=== PATIENT | female | born 1950 | race Caucasian/White ===

== ENCOUNTER 2017-10-05 15:11 | Inpatient (IN) | payer MEDICARE, MEDICAID ==
--- NOTE | 2017-10-05 15:33 | ED Physician Chart ---
ED Chief Complaint/HPI - Patient Information Date Seen:: 10/05/17 Time Seen:: 15:20 Chief Complaint:: Agitation History of Present Illness:: onset x 3 days of agitation and hostile behavior; no report of SIs, trauma, H/as , neck pain, C/P, SOB, cough, Abd. Pain, A/N/V/D/C, fever, chills, or urinary s/ s Allergies:: Allergies Allergy/AdvReac Type Severity Reaction Status Date / Time No Known Allergies Allergy Verified 10/05/17 15:20 Vitals:: Vital Signs - 8 hr 10/05/17 15:20 Temp 98.0 F HR 107 RR 19 BP 139/74 O2 Sat % 97 Historian:: Patient, EMS Review:: Nurse's Note Reviewed, Old Chart Reviewed, EMS run form Reviewed ED Review of Systems - Review of Systems General/Constitutional: No fever, No chills, No weight loss, No weakness, No diaphoresis, No edema, No loss of appetite Skin: No skin lesions, No rash, No bruising Head: No headache, No light-headedness Eyes: No loss of vision, No pain, No diplopia ENT: No earache, No nasal drainage, No sore throat, No tinnitus Neck: No neck pain, No swelling, No thyromegaly, No stiffness, No mass noted Cardio Vascular: No chest pain, No palpitations, No PND, No orthopnea, No edema Pulmonary: No SOB, No cough, No sputum, No wheezing GI: No nausea, No vomiting, No diarrhea, No pain, No melena, No hematochezia, No constipation, No hematemesis G/U: No dysuria, No frequency, No hematuria, No nacturia Boiler Attendant: No vaginal discharge, No abnormal vaginal bleed, No contraction Musculoskeletal: No bone or joint pain, No back pain, No muscle pain Endocrine: No polyuria, No polydipsia Psychiatric: Prior psych history, Depression, Anxiety, No suicidal ideation, No homicidal ideation, No auditory hallucination, No visual hallucination Hematopoietic: No bruising, No lymphadenopathy Allergic/Immuno: No urticaria, No angioedema Neurological: No syncope, No focal symptoms, No weakness, No paresthesia, No headache, No seizure, No dizziness, No confusion, No vertigo ED Past Medical History - Past Medical History Obtainable: Yes Past Medical History: HTN Family History: HTN Social History: Non Smoker, No Alcohol, No Drug Use, Single, Care Facility Surgical History: None Psychiatricy History: Depression, Bipolar Medication: Reviewed Family Medical History - Family Member Mother History Unknown: Yes ED Physical Exam - Physical Examination General/Constitutional: Awake, Well-developed, well-nourished, Alert, No distress, GCS 15, Non-toxic appearing, Ambulatory Head: Atraumatic Eyes: Lids, conjuctiva normal, PERRL, EOMI Skin: Nl inspection, No rash, No skin lesions, No ecchymosis, Well hydrated, No lymphadenopathy ENMT: External ears, nose nl, TM canals nl, Nasal exam nl, Lips, teeth, gums nl , Oropharynx nl, Tonsils nl Neck: Nontender, Full ROM w/o pain, No JVD, No nuchal rigidity, No bruit, No mass, No stridor Respiratory: Nl effort/Exclusion, Clear to Auscultation, No Wheeze/Rhonchi/Rales Cardio Vascular: RRR, No murmur, gallop, rubs, NL S1 S2, Carotid/Femoral/Distal pulses equal bilaterally GI: No tenderness/rebounding/guarding, No organomegaly, No hernia, Normal BS's, Nondistended, No mass/bruits, No McBurney tenderness : No CVA tenderness Extremities: No tenderness or effusion, Full ROM, normal strength in all extremities, No edema, Normal digits & nails Neuro/Psych: Alert/oriented, DTR's symmetric, Normal sensory exam, Normal motor strength, Judgement/insight normal, Mood normal, Normal gait, No focal deficits Other Neuro/Psych comments:: + Psychomotor Agitation; no SIs; Mood/Affect: Labile Misc: Normal back, No paraspinal tenderness ED Labs/Radiology/EKG Results - Lab Results Comments:: unremarkable - EKG Interpretations EKG Time:: 15:17 Rate & Rhythm: 99; NSR Comments:: non-specific st-t changes ED Septic Shock - . Is Septic Shock (SBP<90, OR Lactate>4 mmol\L) present?: No - <6hrs of presentation: Vital Signs: Vital Signs - 8 hr 10/05/17 15:20 Temp 98.0 F HR 107 RR 19 BP 139/74 O2 Sat % 97 ED Reassessment (Disposition) - Reassessment Reassessment Condition:: Improved - Diagnosis Diagnosis:: Dx; Agitation; Bipolar Disorder; Psychosis; Medical Clearance - Aftercare/Follow up Instructions Aftercare/Follow-Up Instructions:: Counseled pt regarding lab results/diagnosis & need follow up, Counseled pt & family regarding lab results/diagnosis & need follow up - Patient Disposition Discharge/Transfer:: Acute Care w/in this hosp Admitted to:: [facility] Condition at Disposition:: Stable, Improved
[2017-10-05 15:50] LABS: % BASOPHILS 0.5 % (0.0-2.0); % EOSINOPHILS 2.7 % (0.0-5.0); % MONOCYTES 6.2 % (2.0-10.0); % NEUTROPHILS 65.6 % (40.0-80.0); EOSINOPHILE ABSOLUTE 0.1 Th/cmm (0.1-0.4); HEMATOCRIT 30.7 % (41.0-60); HEMOGLOBIN 10.2 gm/dL (12-16); LYMPHOCYTE ABSOLUTE 1.4 Th/cmm (1.5-3.0); MEAN CELL VOLUME 88.7 fl (81-100); MEAN CORPUSCULAR HEMOGLOBIN 29.5 pg (27.0-31.0); MEAN CORPUSCULAR HGB CONC 33.2 pg (28.0-36.0); MEAN PLATELET VOLUME 9.2 fl; MONOCYTE ABSOLUTE 0.3 Th/cmm (0.3-1.0); NEUTROPHILE ABSOLUTE 3.7 Th/cmm (1.8-8.0); PLATELET COUNT 225 Th/cmm (150-400); RED BLOOD COUNT 3.46 Mil/cmm (3.80-5.10); RED CELL DISTRIBUTION WIDTH 13.8 % (11.5-20.0); WHITE BLOOD COUNT 5.5 Th/cmm (4.8-10.8)
[2017-10-05 16:13] LABS: ACETAMINOPHEN < 10.0 ug/mL (10.0-30.0); ALB/GLOB RATIO 1.2 (1.0-1.8); ALBUMIN 3.6 gm/dL (3.7-5.3); ALKALINE PHOSPHATASE 103 U/L (34-104); BILIRUBIN,TOTAL 0.2 mg/dL (0.3-1.0); BUN - UREA NITROGEN 27 mg/dL (7-25); CALCIUM SERUM 8.9 mg/dL (8.6-10.3); CARBON DIOXIDE 26.1 mEq/L (21.0-31.0); CHLORIDE 102 mEq/L (98-107); CHOLESTEROL 160 mg/dL (<200); CREATININE - SERUM 1.1 mg/dL (0.6-1.2); GFR AFRICAN-AMERICAN > 60.0 ml/min (>90); GFR NON AFRICAN-AMERICAN 53.1 ml/min; GLUCOSE 122 mg/dL (70-105); HDL -HIGH DENSITY LIPOPROTEIN 36 mg/dL (23-92); POTASSIUM SERUM 4.1 mEq/L (3.5-5.1); SALICYLATES (ASPIRIN) < 25.0 mg/L (30.0-100.0); SGOT 20 U/L (13-39); SGPT/ALT 21 U/L (7-52); SODIUM SERUM 135 mEq/L (136-145); TOTAL PROTEIN,SERUM 6.6 gm/dL (6.0-8.3); TRIGLYCERIDES 337 mg/dL (<150)
[2017-10-05 17:47] VITALS: BP 134/66
[2017-10-06] MEDS ORDERED: Haloperidol Lactate 5 mg/mL 1mL Vial IM ONE (05:50)
[2017-10-06] MEDS: Levothyroxine 0.1 Mg Tab PO SCH (06:30)
[2017-10-06] MEDS ORDERED: Levothyroxine 0.088 Mg Tab PO SCH (07:30)
[2017-10-06] MEDS: Ferrous Sulfate 325 MG TAB PO SCH ×2 (08:48→16:26)
[2017-10-06] MEDS: Calcium Carb/Vit D 500 mg/200 U Tab PO SCH ×2 (08:49→16:25)
[2017-10-06] MEDS ORDERED: Non-Formulary Item 1 EA (Cranberry Fruit Extract [Cranberry] 425 MG) PO SCH (09:00)
[2017-10-06] MEDS ORDERED: CHLORPROMAZINE HCL 50 MG PO SCH (09:00)
--- NOTE | 2017-10-06 18:39 | History & Physical ---
ADMIT DATE: 10/05/2017 IDENTIFYING INFORMATION: The patient is a 66-year-old female. CHIEF COMPLAINT: No answer. HISTORY OF PRESENT ILLNESS: She was admitted because of increased agitation and aggressive behavior. She was striking out. She has been psychotic. She was a poor historian because of her psychosis, unable to participate in a meaningful conversation or tell me the reason why she was here, her age, where she is, why she is here. She has been on Depakote and Seroquel 300 mg twice a day that was initiated by Dr. Bhatt. PAST PSYCHIATRIC HISTORY: Psychosis. The patient is unable to give me more information. MEDICAL HISTORY: Deferred to Dr. Saab. FAMILY AND SOCIAL HISTORY: Unobtainable. The patient has been living in [place]. She cannot give me any info regarding her family history of psychosis. MENTAL STATUS EXAMINATION: The patient is unpredictable and impulsive. No information regarding drug use, level of education ___. The patient is appropriately dressed, not well groomed. She was internally preoccupied, unable to participate in a meaningful conversation ____ would not answer my question regarding date, where she is, why she is here, unable to answer any questions suicide, homicide, unable to test her memory or language and intelligence because of her being internally preoccupied. Her insight and judgment is impaired. IMPRESSION: AXIS I: Psychosis, not otherwise specified, rule out schizophrenia or bipolar disorder. MEDICAL DIAGNOSES: Defer to Dr. Saab. Her assets, she is accepting. Negative for coping skills. INITIAL TREATMENT PLAN: The patient will be continued on medication, will adjust medications. We will continue to work with the patient in the group therapy, milieu therapy, individual therapy. ESTIMATED LENGTH OF STAY: 3-7 days. DISCHARGE CRITERIA: Decrease psychosis, agitation. After discharge, outpatient treatment. JOB# [id number]
[2017-10-06 20:13] LABS: A1C % 7.3 % (4.0-6.0)
[2017-10-07] MEDS: Levothyroxine 0.1 Mg Tab PO SCH (06:39)
[2017-10-07] MEDS: Ferrous Sulfate 325 MG TAB PO SCH ×2 (09:29→17:53)
[2017-10-07] MEDS: Calcium Carb/Vit D 500 mg/200 U Tab PO SCH ×2 (09:30→17:53)
--- NOTE | 2017-10-07 14:33 | Internal Medicine Prog Note ---
Internal Medicine Subjective - Subjective Service Date: 10/07/17 ([facility] DICTATED [id number]) Internal Medicine Objective - Results Result Diagrams: 10/05/17 15:44 10/05/17 15:44 Recent Labs: Laboratory Last Values WBC 5.5 Th/cmm (4.8-10.8) 10/05/17 15:44 RBC 3.46 Mil/cmm (3.80-5.10) L 10/05/17 15:44 Hgb 10.2 gm/dL (12-16) L 10/05/17 15:44 Hct 30.7 % (41.0-60) L 10/05/17 15:44 MCV 88.7 fl (81-100) 10/05/17 15:44 MCH 29.5 pg (27.0-31.0) 10/05/17 15:44 MCHC Differential 33.2 pg (28.0-36.0) 10/05/17 15:44 RDW 13.8 % (11.5-20.0) 10/05/17 15:44 Plt Count 225 Th/cmm (150-400) 10/05/17 15:44 MPV 9.2 fl 10/05/17 15:44 Neutrophils % 65.6 % (40.0-80.0) 10/05/17 15:44 Lymphocytes % 25.0 % (20.0-50.0) 10/05/17 15:44 Monocytes % 6.2 % (2.0-10.0) 10/05/17 15:44 Eosinophils % 2.7 % (0.0-5.0) 10/05/17 15:44 Basophils % 0.5 % (0.0-2.0) 10/05/17 15:44 Sodium 135 mEq/L (136-145) L 10/05/17 15:44 Potassium 4.1 mEq/L (3.5-5.1) 10/05/17 15:44 Chloride 102 mEq/L (98-107) 10/05/17 15:44 Carbon Dioxide 26.1 mEq/L (21.0-31.0) 10/05/17 15:44 Anion Gap 11.0 (7.0-16.0) 10/05/17 15:44 BUN 27 mg/dL (7-25) H 10/05/17 15:44 Creatinine 1.1 mg/dL (0.6-1.2) 10/05/17 15:44 Est GFR ( Amer) > 60.0 ml/min (>90) 10/05/17 15:44 Est GFR (Non-Af Amer) 53.1 ml/min 10/05/17 15:44 BUN/Creatinine Ratio 24.5 10/05/17 15:44 Glucose 122 mg/dL (70-105) H 10/05/17 15:44 POC Glucose 89 MG/DL (70 - 105) 10/07/17 12:04 Hemoglobin A1c % 7.3 % (4.0-6.0) H 10/05/17 15:44 Calcium 8.9 mg/dL (8.6-10.3) 10/05/17 15:44 Total Bilirubin 0.2 mg/dL (0.3-1.0) L 10/05/17 15:44 AST 20 U/L (13-39) 10/05/17 15:44 ALT 21 U/L (7-52) 10/05/17 15:44 Alkaline Phosphatase 103 U/L (34-104) 10/05/17 15:44 Total Protein 6.6 gm/dL (6.0-8.3) 10/05/17 15:44 Albumin 3.6 gm/dL (3.7-5.3) L 10/05/17 15:44 Globulin 3.0 gm/dL 10/05/17 15:44 Albumin/Globulin Ratio 1.2 (1.0-1.8) 10/05/17 15:44 Triglycerides 337 mg/dL (<150) H 10/05/17 15:44 Cholesterol 160 mg/dL (<200) 10/05/17 15:44 LDL Cholesterol Direct 76 mg/dL (75-193) 10/05/17 15:44 HDL Cholesterol 36 mg/dL (23-92) 10/05/17 15:44 TSH 3.92 uIU/ml (0.34-5.60) 10/05/17 15:44 Salicylates < 25.0 mg/L (30.0-100.0) L 10/05/17 15:44 Acetaminophen < 10.0 ug/mL (10.0-30.0) L 10/05/17 15:44 Ethyl Alcohol < 10 mg/dL (0-10) 10/05/17 15:44 - Physical Exam Vitals and I&O: Vital Signs Temp 97 F 10/07/17 06:28 Pulse 98 10/07/17 06:28 Resp 18 10/07/17 06:28 BP 123/65 10/07/17 06:28 Pulse Ox 98 10/07/17 06:28 Intake & Output 10/06/17 10/07/17 10/07/17 18:59 06:59 18:59 Intake Total 800 120 Balance 800 120 Intake: Oral 800 120 Other: # Voids 3 3 # Bowel Movements 1 Active Medications: Current Medications Calcium/Vitamin D (Oscal W/Vitamin D) 2 tab PO BID [facility] Stop: 12/05/17 08:59 Last Admin: 10/07/17 09:30 Dose: 2 tab Chlorpromazine (Thorazine) 50 mg PO BID [facility] Stop: 12/05/17 16:59 Last Admin: 10/07/17 09:28 Dose: 50 mg Divalproex Sodium (Depakote Dr) 250 mg PO BID [facility] Stop: 12/06/17 16:59 Docusate Sodium (Colace) 250 mg PO DAILY [facility] Stop: 12/05/17 08:59 Last Admin: 10/07/17 09:29 Dose: 250 mg Ferrous Sulfate (Iron) 325 mg PO BID [facility] Stop: 12/05/17 08:59 Last Admin: 10/07/17 09:29 Dose: 325 mg Levothyroxine Sodium (Synthroid) 0.1 mg PO QDAC [facility] Stop: 12/05/17 07:29 Last Admin: 10/07/17 06:39 Dose: 0.1 mg Levothyroxine Sodium (Synthroid) 0.088 mg PO QDAC [facility] Stop: 12/05/17 07:29 Lorazepam (Ativan) 0.5 mg PO Q6HR PRN; Protocol PRN Reason: Agitation Stop: 12/05/17 14:53 Last Admin: 10/06/17 15:04 Dose: 0.5 mg Metformin HCl (Glucophage) 1,000 mg PO BID [facility] Stop: 12/05/17 08:59 Last Admin: 10/07/17 09:29 Dose: 1,000 mg Pioglitazone HCl (Actos) 45 mg PO DAILY [facility] Stop: 12/05/17 08:59 Last Admin: 10/07/17 09:27 Dose: 45 mg Quetiapine Fumarate (Seroquel) 300 mg PO BID [facility] Stop: 12/05/17 16:59 Last Admin: 10/07/17 09:27 Dose: 300 mg
--- NOTE | 2017-10-07 15:39 | History & Physical ---
ADMIT DATE: 10/07/2017 CHIEF COMPLAINT: Agitation. HISTORY OF PRESENT ILLNESS: This is a 66-year-old female who has a 3-day history of agitation, hostile behavior. For this reason, the patient is now admitted to the Geropsych Unit. PAST MEDICAL HISTORY: Hypertension, diabetes, anemia, constipation, and hypothyroidism. FAMILY HISTORY: Noncontributory. SOCIAL HISTORY: The patient is a custodial resident, requiring 24-hour nursing care. SURGICAL HISTORY: None. MEDICATIONS: Please see medication sheet. REVIEW OF SYSTEMS: GENERAL: Denies any fevers and chills. CARDIOVASCULAR: Denies chest pain. RESPIRATORY: Denies shortness of breath. GASTROINTESTINAL: Denies nausea, vomiting, abdominal pain. GENITOURINARY: Denies increased frequency or dysuria. NEUROLOGIC: No headaches, seizures, or syncope. All other systems are reviewed and are negative. PHYSICAL EXAMINATION: GENERAL: The patient is well developed, well nourished, no acute distress. VITAL SIGNS: Temperature 97, heart rate 98, blood pressure 123/65, respirations 18, O2 ___%. HEENT: Head; normocephalic, atraumatic. NECK: Supple. No mass. LUNGS: Clear bilaterally. HEART: Regular rate and rhythm. ABDOMEN: Soft, nontender. LABORATORY DATA: WBC 5.5, H and H 10.2 and 30.7, platelet of 225. Sodium 135, potassium 4.1, chloride 102, BUN 27, creatinine 1.1. ASSESSMENT: Hypertension, agitation, bipolar disorder, psychosis, hypothyroidism, anemia, constipation, and diabetes. PLAN: The patient to be admitted to the Geropsych Unit. We will monitor patient's glucose level. Add a sliding scale. We will continue to monitor this patient. JOB# [id number]
--- NOTE | 2017-10-07 16:09 | Progress Notes ---
DATE: 10/07/2017 SUBJECTIVE: Case was discussed with staff of the patient and reviewed records. The patient was in the isolation room. She continues to be psychotic, continues to be unable to carry on a conversation or make safe plan for self-care, and continues to have poor insight. She is already on Seroquel 300 mg twice a day and Depakote 250 mg daily and she is also on chlorpromazine 50 mg, but is still very psychotic, unable to make safe plan for her self-care, and gravely disabled. PLAN: We are increasing the Depakote to 250 twice a day and so far no side effects with the medication, no sedation, no nausea, no extrapyramidal symptoms. We will continue to work with the patient in group therapy, milieu therapy, and adjust medication as needed. JOB# [id number]
[2017-10-08] MEDS: Levothyroxine 0.1 Mg Tab PO SCH (06:31)
[2017-10-08] MEDS: Ferrous Sulfate 325 MG TAB PO SCH ×2 (08:52→17:25)
[2017-10-08] MEDS: Calcium Carb/Vit D 500 mg/200 U Tab PO SCH ×2 (08:53→17:11)
--- NOTE | 2017-10-08 14:38 | History and Physical ---
History of Present Illness - HPI Chief Complaint: Pt is poor historian. HPI: 66 year old female who is agitated and aggressive. Patient is a poor historian. pt has psychosis. Vital Signs: Last Vital Signs Temp 97.5 F 10/07/17 20:00 Pulse 102 10/07/17 20:00 Resp 18 10/07/17 20:00 BP 110/58 10/07/17 20:00 Pulse Ox 97 10/07/17 20:00 Family Medical History - Family Member Mother History Unknown: Yes Ethnicity: Unknown Living Status: Unknown Social History Smoke: No Alcohol: None Drugs: None Lives: Other (cannot answer) Domestic Violence: Negative - Medications Home Medications: Home Medication Medication Instructions Recorded Type Calcium Carbonate/Vitamin D3 2 each PO BID 10/05/17 History [Calcium 250+D Tablet] Chlorpromazine HCl 50 mg PO BID 10/05/17 History Cranberry Fruit Extract [Cranberry] 425 mg PO DAILY 10/05/[address] [Depakote DR] 250 mg PO DAILY 10/05/17 History Docusate Sodium [Col-Rite] 250 mg PO DAILY 10/05/17 History Ferrous Sulfate [Iron] 325 mg PO BID 10/05/17 History Levothyroxine [Synthroid] 0.088 mg PO QDAC 10/05/17 History Pioglitazone HCl [Actos] 45 mg PO DAILY 10/05/17 History QUEtiapine Fumarate [SEROquel] 300 mg PO BID 10/05/17 History - Allergies Allergies/Adverse Reactions: Allergies Allergy/AdvReac Type Severity Reaction Status Date / Time No Known Allergies Allergy Verified 10/05/17 15:20 Review of Systems - Review of Systems Constitutional: Report: No Significant Eyes: Report: No Significant ENT: Report: No Significant Respiratory: Report: No Significant Cardiovascular: Report: No Significant Gastrointestinal: Report: No Significant Genitourinary: Report: No Significant Musculoskeletal: Report: No Significant Skin: Report: No Significant Neurological: Report: Other (psychosis) - Lab Results All Lab Results last 24 hours: Laboratory Results - last 24 hr 10/07/17 10/08/17 17:25 11:18 POC Glucose 127 H Valproic Acid 24.2 L - Assessment Assessment: psychosis bipolar disorder medical clearance - Plan Plan: as per ordersheet
--- NOTE | 2017-10-08 21:23 | Progress Notes ---
DATE: 10/08/2017 Case discussed with staff of the patient, reviewed records. The patient continues to be psychotic, though she is not in the observation room, still unable to carry on a conversation, rambling speech. Continues to have poor insight. Unable to make a reasonable plan for self-care. She is on the Depakote 250 mg 3 times a day as well as Seroquel 300 mg twice a day, which is a good dose. She is also on chlorpromazine 50 mg twice daily and her lab work showed CBC with low hemoglobin, low hematocrit. Sodium level is low at 135, high BUN 27, high blood sugar, high triglyceride. I will be checking her Depakote level to make sure she is compliant with her medication and see if there is room for adjusting her level if she is still acting aggressive and so far no side effects from the medication, no sedation, no nausea, no extrapyramidal symptoms and we will continue to work with the patient in group therapy, milieu therapy, adjust the medication as needed. JOB# [id number]
[2017-10-09] MEDS: Levothyroxine 0.1 Mg Tab PO SCH (06:35)
[2017-10-09] MEDS ORDERED: Haloperidol Lactate 5 mg/mL 1mL Vial ONE (08:35)
[2017-10-09] MEDS ORDERED: Haloperidol Lactate 5 mg/mL 1mL Vial IM ONE (08:37)
[2017-10-09] MEDS: Calcium Carb/Vit D 500 mg/200 U Tab PO SCH ×2 (09:11→17:45)
[2017-10-09] MEDS: Ferrous Sulfate 325 MG TAB PO SCH ×2 (09:12→17:48)
--- NOTE | 2017-10-09 10:27 | Progress Notes ---
DATE: 10/09/2017 SUBJECTIVE: The patient is asleep but easily arousable. According to staff nurse, the patient was given a p.r.n. medication due to aggressive behavior; otherwise, the patient appears to be calm and easily arousable. The patient also noted to have bilateral forearm swelling, no episode of fall according to nurses, appears to be swollen, but no signs or symptoms of discomfort. OBJECTIVE: VITAL SIGNS: Temperature 98.2, heart rate 96, blood pressure 100/60, respiration of 20, and 98% on room air. HEENT: Head is atraumatic and normocephalic. Eyes: Bilateral conjunctivae are clear. Bilateral pupils are equally round and reactive. NECK: Supple. No JVD. CARDIOVASCULAR: S1 and S2, without murmur. PULMONARY: Clear to auscultation. GASTROINTESTINAL: Soft and nontender without guarding. Positive bowel sounds. MUSCULOSKELETAL: Positive edema bilateral forearms. No clubbing. No cyanosis. ASSESSMENT: 1. Psychosis. 2. Hypothyroidism. 3. Iron deficiency anemia. 4. Diabetes mellitus. 5. Osteoarthritis. PLAN: We will obtain x-ray on bilateral forearm. We will try to elevate forearm to decrease edema. I will give the patient pain medication as needed. We will continue to consult with a followup with a psychiatrist to monitor the patient's condition and behavior. Treatment plans were discussed with the patient's nurse. Treatment plans were discussed with Dr. Saab. JOB# [id number]
--- NOTE | 2017-10-09 17:49 | Progress Notes ---
DATE: SUBJECTIVE: The patient was seen and evaluated. The patient's chart reviewed. This is Dr. Zapata doing psychiatric followup note covering for Dr. Bhatt. IDENTIFYING DATA: She is a 66-year-old female, who was initially admitted here for increased agitation and aggressive behavior, observed to be psychotic. In the hospital course, the patient has been treated with Depakote 250 mg twice a day with Thorazine 50 mg twice a day and Seroquel 300 mg twice a day. Today on [id number] evaluation, the patient is a very poor historian, minimally interactive in her room, disengaged and nonverbal. No overt side effects noted of medications. MENTAL STATUS EXAMINATION: Disorganized, disheveled, minimally interactive. ASSESSMENT AND PLAN: A 66-year-old female with multiple psychotropics. She is unclear of the 2 antipsychotics that are on board. We will continue monitoring, evaluating, unclear which medications is being cross titrated to the other. In the meantime, we will continue monitoring and evaluating as she continues to be disorganized and unable to carry on conversation. We will continue with primary psychiatrist's treatment plan and goals. JOB# [id number]
[2017-10-10] MEDS: Levothyroxine 0.1 Mg Tab PO SCH (06:42)
[2017-10-10] MEDS: Ferrous Sulfate 325 MG TAB PO SCH ×2 (09:06→16:22)
[2017-10-10] MEDS: Calcium Carb/Vit D 500 mg/200 U Tab PO SCH ×2 (09:06→16:22)
--- NOTE | 2017-10-10 10:02 | Diagnostic Imaging Report ---
Exam: Left forearm. HISTORY: Swelling. Findings: Multiple views of left forearm portably at 1029 reviewed the study demonstrates no evidence of soft tissue swelling. There is no evidence of fracture dislocation. IMPRESSION: Normal portable examination left forearm
--- NOTE | 2017-10-10 10:04 | Diagnostic Imaging Report ---
Exam: Right forearm HISTORY: Soft tissue swelling. Findings: Portable summation right forearm of 1023 hours reviewed. The study demonstrates no evidence of fracture dislocation. Mild soft tissue swelling laterally in distal right forearm is noted. Clinical correlation recommended IMPRESSION: soft tissue swelling distal right forearm. No evidence of fracture dislocation. Clinical correlation recommended.
--- NOTE | 2017-10-10 11:30 | General Progress Note ---
Subjective - Review of Systems Events since last encounter: patient is awake disorganized, no signs of pain withdrawn Objective - Results Result Diagrams: 10/05/17 15:44 10/05/17 15:44 Recent Labs: Laboratory Last Values WBC 5.5 Th/cmm (4.8-10.8) 10/05/17 15:44 RBC 3.46 Mil/cmm (3.80-5.10) L 10/05/17 15:44 Hgb 10.2 gm/dL (12-16) L 10/05/17 15:44 Hct 30.7 % (41.0-60) L 10/05/17 15:44 MCV 88.7 fl (81-100) 10/05/17 15:44 MCH 29.5 pg (27.0-31.0) 10/05/17 15:44 MCHC Differential 33.2 pg (28.0-36.0) 10/05/17 15:44 RDW 13.8 % (11.5-20.0) 10/05/17 15:44 Plt Count 225 Th/cmm (150-400) 10/05/17 15:44 MPV 9.2 fl 10/05/17 15:44 Neutrophils % 65.6 % (40.0-80.0) 10/05/17 15:44 Lymphocytes % 25.0 % (20.0-50.0) 10/05/17 15:44 Monocytes % 6.2 % (2.0-10.0) 10/05/17 15:44 Eosinophils % 2.7 % (0.0-5.0) 10/05/17 15:44 Basophils % 0.5 % (0.0-2.0) 10/05/17 15:44 Sodium 135 mEq/L (136-145) L 10/05/17 15:44 Potassium 4.1 mEq/L (3.5-5.1) 10/05/17 15:44 Chloride 102 mEq/L (98-107) 10/05/17 15:44 Carbon Dioxide 26.1 mEq/L (21.0-31.0) 10/05/17 15:44 Anion Gap 11.0 (7.0-16.0) 10/05/17 15:44 BUN 27 mg/dL (7-25) H 10/05/17 15:44 Creatinine 1.1 mg/dL (0.6-1.2) 10/05/17 15:44 Est GFR ( Amer) > 60.0 ml/min (>90) 10/05/17 15:44 Est GFR (Non-Af Amer) 53.1 ml/min 10/05/17 15:44 BUN/Creatinine Ratio 24.5 10/05/17 15:44 Glucose 122 mg/dL (70-105) H 10/05/17 15:44 POC Glucose 125 MG/DL (70 - 105) H 10/10/17 06:02 Hemoglobin A1c % 7.3 % (4.0-6.0) H 10/05/17 15:44 Calcium 8.9 mg/dL (8.6-10.3) 10/05/17 15:44 Total Bilirubin 0.2 mg/dL (0.3-1.0) L 10/05/17 15:44 AST 20 U/L (13-39) 10/05/17 15:44 ALT 21 U/L (7-52) 10/05/17 15:44 Alkaline Phosphatase 103 U/L (34-104) 10/05/17 15:44 Total Protein 6.6 gm/dL (6.0-8.3) 10/05/17 15:44 Albumin 3.6 gm/dL (3.7-5.3) L 10/05/17 15:44 Globulin 3.0 gm/dL 10/05/17 15:44 Albumin/Globulin Ratio 1.2 (1.0-1.8) 10/05/17 15:44 Triglycerides 337 mg/dL (<150) H 10/05/17 15:44 Cholesterol 160 mg/dL (<200) 10/05/17 15:44 LDL Cholesterol Direct 76 mg/dL (75-193) 10/05/17 15:44 HDL Cholesterol 36 mg/dL (23-92) 10/05/17 15:44 TSH 3.92 uIU/ml (0.34-5.60) 10/05/17 15:44 Salicylates < 25.0 mg/L (30.0-100.0) L 10/05/17 15:44 Acetaminophen < 10.0 ug/mL (10.0-30.0) L 04/03/18 15:44 Valproic Acid 24.2 ug/mL (50.0-100.0) L 10/08/17 11:18 Ethyl Alcohol < 10 mg/dL (0-10) 10/05/17 15:44 RPR NONREACTIVE (NONREACTIVE) 10/05/17 15:44 - Physical Exam Vitals and I&O: Vital Signs Temp 97.2 F 10/10/17 06:30 Pulse 94 10/10/17 06:30 Resp 19 10/10/17 06:30 BP 120/84 10/10/17 06:30 Pulse Ox 96 10/10/17 06:30 Intake & Output 10/09/17 10/10/17 10/10/17 18:59 06:59 18:59 Intake Total 2200 120 Balance 2200 120 Intake: Oral 2200 120 Other: # Voids 4 3 # Bowel Movements 2 Active Medications: Current Medications Calcium/Vitamin D (Oscal W/Vitamin D) 2 tab PO BID [facility] Stop: 12/05/17 08:59 Last Admin: 10/10/17 09:06 Dose: 2 tab Divalproex Sodium (Depakote Dr) 250 mg PO BID [facility] Stop: 12/06/17 16:59 Last Admin: 10/10/17 09:06 Dose: 250 mg Docusate Sodium (Colace) 250 mg PO DAILY [facility] Stop: 12/05/17 08:59 Last Admin: 10/10/17 09:06 Dose: 250 mg Ferrous Sulfate (Iron) 325 mg PO BID [facility] Stop: 12/05/17 08:59 Last Admin: 10/10/17 09:06 Dose: 325 mg Ibuprofen (Motrin) 400 mg PO Q8H PRN PRN Reason: Pain (Moderate) Stop: 12/08/17 09:52 Levothyroxine Sodium (Synthroid) 0.1 mg PO QDAC [facility] Stop: 12/05/17 07:29 Last Admin: 10/10/17 06:42 Dose: 0.1 mg Levothyroxine Sodium (Synthroid) 0.088 mg PO QDAC [facility] Stop: 12/05/17 07:29 Lorazepam (Ativan) 0.5 mg PO Q6HR PRN; Protocol PRN Reason: Agitation Stop: 12/05/17 14:53 Last Admin: 10/10/17 09:08 Dose: 0.5 mg Metformin HCl (Glucophage) 1,000 mg PO BID [facility] Stop: 12/05/17 08:59 Last Admin: 10/10/17 09:06 Dose: 1,000 mg Pioglitazone HCl (Actos) 45 mg PO DAILY [facility] Stop: 12/05/17 08:59 Last Admin: 10/10/17 09:05 Dose: 45 mg Quetiapine Fumarate (Seroquel) 300 mg PO BID [facility] Stop: 12/05/17 16:59 Last Admin: 10/10/17 09:05 Dose: 300 mg Assessment/Plan - Assessment Assessment: psychosis bipolar disorder medical clearance - Plan Plan: as per ordersheet Nutritional Asmnt/Malnutr-PDOC - Dietary Evaluation Malnutrition Findings (Please click <Entered> for more info): Nutritional Asmnt/Malnutrition Start: 10/09/17 13: 40 Text: Status: Active Freq: Document 10/09/17 13:40 ALICIA (Rec: 10/09/17 13:57 LCDEB FRANCISCO [email or web address]) Nutritional Asmnt/Malnutrition Patient General Information Nutritional Screening Moderate Risk Diagnosis psychosis Pertinent Medical Hx/Surgical Hx HTN, DM, anemia, constipation, hypothyroidism Subjective Information Pt seen sitting up in bed taking soup, [place] speaking. Per HOUSING INSPECTOR, pt eats 100% of meals, always ask for extra food. Current Diet Order/ Nutrition Support CCHO-60gm, low fat, low cholesterol, small portion Pertinent Medications oscal w/vit D, colace, Iron, synthroid, gluophage, seroquel Pertinent Labs / Na 135, BUN 27, glucose 122, A1c 7.3, alb 3.6 /4-4/ POC 89-126 Nutritional Hx/Data Height 1.57 m Height (Calculated Centimeters) 157.5 Current Weight (lbs) 79.379 kg Weight (Calculated Kilograms) 79.4 Weight (Calculated Grams) 04135.7 [place] Body Weight 110 Body Mass Index (BMI) 32.0 Weight Status Obese GI Symptoms GI Symptoms None Last BM 4/6 Difficult in: None Skin Integrity/Comment: intact 1+pitting edema to left and right arms marlena score 21 Current %PO Good (75-100%) Estimated Nutritional Goals BEE in Kcals: Adj wt of IBW Calories/Kcals/Kg 25-30 Kcals Calculated 2583-1355 Protein: Adj wt of IBW Protein g/k-1.2 Protein Calculated 57-68 Fluid: ml 1425-1710ml (1ml/kcal) Nutritional Problem 1. Problem Problem altered nutrition related lab values Etiology hx of DM Signs/Symptoms: glucose 122, A1c 7.3, POC 89- 126 Malnutrition Alert Protein-Calorie Malnutrition N/A Is there a minimum of two criteria No selected? Query Text:Check all the applicable criteria. A minimum of two criteria are recommended for diagnosis of either severe or non-severe malnutrition. Intervention/Recommendation Comments 1. Continue with current diet as ordered. 2. Monitor PO intake, wt, labs and skin integrity 3. F/U as moderate risk in 3-5 days, 10/12-10/14 Expected Outcomes/Goals Expected Outcomes/Goals 1. PO intake to meet at least 75% of nutritional needs. 2. Wt stability, skin to remain intact, labs to approach WNL.
--- NOTE | 2017-10-10 18:41 | Progress Notes ---
DATE: 10/10/2017 The patient was seen and evaluated. The patient's chart was reviewed. COVERING FOR: Dr. Bhatt. Overnight nursing staff reported the patient continues to need a lot of redirection but mostly isolated and withdrawn in her room. Today on [id number] evaluation, nonverbal, disengaged, distraught with intermittently responding to internal stimuli. MENTAL STATUS EXAMINATION: Intermittent in thought blocking, responding. ASSESSMENT AND PLAN: The patient is a 66-year-old female with schizophrenia. We will continue monitoring and evaluating. We will consolidate the antipsychotics to monotherapy with Seroquel while we lower the Thorazine to reduce the risk of QT prolongation. She is already on Seroquel, which are too potential agents that could cause some QT prolongations. We will continue monitoring, evaluating with the recent consolidation to Seroquel. JOB# [id number]
[2017-10-11] MEDS: Levothyroxine 0.1 Mg Tab PO SCH (06:38)
[2017-10-11] MEDS: Calcium Carb/Vit D 500 mg/200 U Tab PO SCH ×2 (08:00→16:32)
[2017-10-11] MEDS: Ferrous Sulfate 325 MG TAB PO SCH ×2 (08:01→16:33)
--- NOTE | 2017-10-11 12:47 | Progress Notes ---
DATE: 10/11/2017 SUBJECTIVE: A 66-year-old female, currently in the hospital noted to be yelling, fighting, highly confused, childish, AO to name only. Apparently striking out. Concerns for psychotic behaviors. Apparently was living in [place]. On [id number], the patient is a poor historian, very confused. Staff noting she remains quite acute, still restless. MEDICATIONS: Noted. She is on fairly high doses of Seroquel. ASSESSMENT: The patient remains symptomatic, confused, disoriented, still with ongoing behavioral disturbances. Dr. Zapata saw the patient over the weekend, noting that she remained disheveled, minimally interactive, still appearing psychotic. PLAN: We will monitor and follow up. JOB# [id number]
--- NOTE | 2017-10-11 15:16 | General Progress Note ---
Subjective - Review of Systems Events since last encounter: patient psychotic confused denies pain Objective - Results Result Diagrams: 10/05/17 15:44 10/05/17 15:44 Recent Labs: Laboratory Last Values WBC 5.5 Th/cmm (4.8-10.8) 10/05/17 15:44 RBC 3.46 Mil/cmm (3.80-5.10) L 10/05/17 15:44 Hgb 10.2 gm/dL (12-16) L 10/05/17 15:44 Hct 30.7 % (41.0-60) L 10/05/17 15:44 MCV 88.7 fl (81-100) 10/05/17 15:44 MCH 29.5 pg (27.0-31.0) 10/05/17 15:44 MCHC Differential 33.2 pg (28.0-36.0) 10/05/17 15:44 RDW 13.8 % (11.5-20.0) 10/05/17 15:44 Plt Count 225 Th/cmm (150-400) 10/05/17 15:44 MPV 9.2 fl 10/05/17 15:44 Neutrophils % 65.6 % (40.0-80.0) 10/05/17 15:44 Lymphocytes % 25.0 % (20.0-50.0) 10/05/17 15:44 Monocytes % 6.2 % (2.0-10.0) 10/05/17 15:44 Eosinophils % 2.7 % (0.0-5.0) 10/05/17 15:44 Basophils % 0.5 % (0.0-2.0) 10/05/17 15:44 Sodium 135 mEq/L (136-145) L 10/05/17 15:44 Potassium 4.1 mEq/L (3.5-5.1) 10/05/17 15:44 Chloride 102 mEq/L (98-107) 10/05/17 15:44 Carbon Dioxide 26.1 mEq/L (21.0-31.0) 10/05/17 15:44 Anion Gap 11.0 (7.0-16.0) 10/05/17 15:44 BUN 27 mg/dL (7-25) H 10/05/17 15:44 Creatinine 1.1 mg/dL (0.6-1.2) 10/05/17 15:44 Est GFR ( Amer) > 60.0 ml/min (>90) 10/05/17 15:44 Est GFR (Non-Af Amer) 53.1 ml/min 10/05/17 15:44 BUN/Creatinine Ratio 24.5 10/05/17 15:44 Glucose 122 mg/dL (70-105) H 10/05/17 15:44 POC Glucose 125 MG/DL (70 - 105) H 10/10/17 06:02 Hemoglobin A1c % 7.3 % (4.0-6.0) H 10/05/17 15:44 Calcium 8.9 mg/dL (8.6-10.3) 10/05/17 15:44 Total Bilirubin 0.2 mg/dL (0.3-1.0) L 10/05/17 15:44 AST 20 U/L (13-39) 10/05/17 15:44 ALT 21 U/L (7-52) 10/05/17 15:44 Alkaline Phosphatase 103 U/L (34-104) 10/05/17 15:44 Total Protein 6.6 gm/dL (6.0-8.3) 10/05/17 15:44 Albumin 3.6 gm/dL (3.7-5.3) L 10/05/17 15:44 Globulin 3.0 gm/dL 10/05/17 15:44 Albumin/Globulin Ratio 1.2 (1.0-1.8) 10/05/17 15:44 Triglycerides 337 mg/dL (<150) H 10/05/17 15:44 Cholesterol 160 mg/dL (<200) 10/05/17 15:44 LDL Cholesterol Direct 76 mg/dL (75-193) 10/05/17 15:44 HDL Cholesterol 36 mg/dL (23-92) 10/05/17 15:44 TSH 3.92 uIU/ml (0.34-5.60) 10/05/17 15:44 Salicylates < 25.0 mg/L (30.0-100.0) L 10/05/17 15:44 Acetaminophen < 10.0 ug/mL (10.0-30.0) L 10/05/17 15:44 Valproic Acid 24.2 ug/mL (50.0-100.0) L 10/08/17 11:18 Ethyl Alcohol < 10 mg/dL (0-10) 10/05/17 15:44 RPR NONREACTIVE (NONREACTIVE) 10/05/17 15:44 - Physical Exam Vitals and I&O: Vital Signs Temp 97.7 F 10/11/17 14:41 Pulse 94 10/11/17 14:41 Resp 20 10/11/17 14:41 BP 145/78 10/11/17 14:41 Pulse Ox 94 10/11/17 14:41 Intake & Output 10/10/17 10/11/17 10/11/17 18:59 06:59 18:59 Intake Total 2200 240 Balance 2200 240 Weight (lbs) 79.379 kg Intake: Oral 2200 240 Other: # Voids 4 3 # Bowel Movements 3 1 Stool Characteristics Soft Soft Brown Brown Weight Source Bedscale Active Medications: Current Medications Calcium/Vitamin D (Oscal W/Vitamin D) 2 tab PO BID [facility] Stop: 12/05/17 08:59 Last Admin: 10/11/17 08:00 Dose: 2 tab Divalproex Sodium (Depakote Dr) 250 mg PO BID [facility] Stop: 12/06/17 16:59 Last Admin: 10/11/17 08:02 Dose: 250 mg Docusate Sodium (Colace) 250 mg PO DAILY [facility] Stop: 12/05/17 08:59 Last Admin: 10/11/17 08:03 Dose: Not Given Ferrous Sulfate (Iron) 325 mg PO BID [facility] Stop: 12/05/17 08:59 Last Admin: 10/11/17 08:01 Dose: 325 mg Ibuprofen (Motrin) 400 mg PO Q8H PRN PRN Reason: Pain (Moderate) Stop: 12/08/17 09:52 Levothyroxine Sodium (Synthroid) 0.1 mg PO QDAC [facility] Stop: 12/05/17 07:29 Last Admin: 10/11/17 06:38 Dose: 0.1 mg Levothyroxine Sodium (Synthroid) 0.088 mg PO QDAC [facility] Stop: 12/05/17 07:29 Lorazepam (Ativan) 0.5 mg PO Q6HR PRN; Protocol PRN Reason: Agitation Stop: 12/05/17 14:53 Last Admin: 10/11/17 08:01 Dose: 0.5 mg Metformin HCl (Glucophage) 1,000 mg PO BID [facility] Stop: 12/05/17 08:59 Last Admin: 10/11/17 08:01 Dose: 1,000 mg Pioglitazone HCl (Actos) 45 mg PO DAILY [facility] Stop: 12/05/17 08:59 Last Admin: 10/11/17 08:01 Dose: 45 mg Quetiapine Fumarate (Seroquel) 300 mg PO BID [facility] Stop: 12/05/17 16:59 Last Admin: 10/11/17 08:02 Dose: 300 mg Assessment/Plan - Assessment Assessment: psychosis bipolar disorder medical clearance - Plan Plan: as per ordersheet Nutritional Asmnt/Malnutr-PDOC - Dietary Evaluation Malnutrition Findings (Please click <Entered> for more info): Nutritional Asmnt/Malnutrition Start: 10/09/17 13: 40 Text: Status: Active Freq: Document 10/09/17 13:40 ALICIA (Rec: 10/09/17 13:57 [facility] Nutritional Asmnt/Malnutrition Patient General Information Nutritional Screening Moderate Risk Diagnosis psychosis Pertinent Medical Hx/Surgical Hx HTN, DM, anemia, constipation, hypothyroidism Subjective Information Pt seen sitting up in bed taking soup, Belgian speaking. Per PILE HEADER, pt eats 100% of meals, always ask for extra food. Current Diet Order/ Nutrition Support CCHO-60gm, low fat, low cholesterol, small portion Pertinent Medications oscal w/vit D, colace, Iron, synthroid, gluophage, seroquel Pertinent Labs 10/05 Na 135, BUN 27, glucose 122, A1c 7.3, alb 3.6 10/06-10/07 POC 89-126 Nutritional Hx/Data Height 1.57 m Height (Calculated Centimeters) 157.5 Current Weight (lbs) 79.379 kg Weight (Calculated Kilograms) 79.4 Weight (Calculated Grams) 46862.7 [place] Body Weight 110 Body Mass Index (BMI) 32.0 Weight Status Obese GI Symptoms GI Symptoms None Last BM 4/6 Difficult in: None Skin Integrity/Comment: intact 1+pitting edema to left and right arms marlena score 21 Current %PO Good (75-100%) Estimated Nutritional Goals BEE in Kcals: Adj wt of IBW Calories/Kcals/Kg 25-30 Kcals Calculated 3216-2034 Protein: Adj wt of IBW Protein g/k-1.2 Protein Calculated 57-68 Fluid: ml 1425-1710ml (1ml/kcal) Nutritional Problem 1. Problem Problem altered nutrition related lab values Etiology hx of DM Signs/Symptoms: glucose 122, A1c 7.3, POC 89- 126 Malnutrition Alert Protein-Calorie Malnutrition N/A Is there a minimum of two criteria No selected? Query Text:Check all the applicable criteria. A minimum of two criteria are recommended for diagnosis of either severe or non-severe malnutrition. Intervention/Recommendation Comments 1. Continue with current diet as ordered. 2. Monitor PO intake, wt, labs and skin integrity 3. F/U as moderate risk in 3-5 days, 10/12-10/14 Expected Outcomes/Goals Expected Outcomes/Goals 1. PO intake to meet at least 75% of nutritional needs. 2. Wt stability, skin to remain intact, labs to approach WNL.
[2017-10-12] MEDS: Levothyroxine 0.1 Mg Tab PO SCH (06:40)
[2017-10-12] MEDS: Ferrous Sulfate 325 MG TAB PO SCH ×2 (09:04→17:07)
[2017-10-12] MEDS: Calcium Carb/Vit D 500 mg/200 U Tab PO SCH ×2 (09:04→17:08)
--- NOTE | 2017-10-12 12:16 | Progress Notes ---
DATE: 10/12/2017 A 66-year-old female, currently in the hospital, noted to be yelling, fighting, childish behaviors, refusing to talk to me today, withdrawn. Yesterday, she was confused and disoriented, not a good historian. Medications were noted. ASSESSMENT: The patient remains symptomatic, childlike, highly impulsive, unpredictable, refusing to speak with me today. PLAN: We will continue to monitor. We will adjust the dosages of medications as needed. Given ongoing symptoms, she is not safe for a lower level of care. JOB# [id number]
--- NOTE | 2017-10-12 13:19 | Internal Medicine Prog Note ---
Internal Medicine Subjective - Subjective Service Date: 10/12/17 Patient seen and examined:: with staff Patient is:: awake, verbal, confused Per staff patient has:: tolerating meds Internal Medicine Objective - Results Result Diagrams: 10/05/17 15:44 10/05/17 15:44 Recent Labs: Laboratory Last Values WBC 5.5 Th/cmm (4.8-10.8) 10/05/17 15:44 RBC 3.46 Mil/cmm (3.80-5.10) L 10/05/17 15:44 Hgb 10.2 gm/dL (12-16) L 10/05/17 15:44 Hct 30.7 % (41.0-60) L 10/05/17 15:44 MCV 88.7 fl (81-100) 10/05/17 15:44 MCH 29.5 pg (27.0-31.0) 10/05/17 15:44 MCHC Differential 33.2 pg (28.0-36.0) 10/05/17 15:44 RDW 13.8 % (11.5-20.0) 10/05/17 15:44 Plt Count 225 Th/cmm (150-400) 10/05/17 15:44 MPV 9.2 fl 10/05/17 15:44 Neutrophils % 65.6 % (40.0-80.0) 10/05/17 15:44 Lymphocytes % 25.0 % (20.0-50.0) 10/05/17 15:44 Monocytes % 6.2 % (2.0-10.0) 10/05/17 15:44 Eosinophils % 2.7 % (0.0-5.0) 10/05/17 15:44 Basophils % 0.5 % (0.0-2.0) 10/05/17 15:44 Sodium 135 mEq/L (136-145) L 10/05/17 15:44 Potassium 4.1 mEq/L (3.5-5.1) 10/05/17 15:44 Chloride 102 mEq/L (98-107) 10/05/17 15:44 Carbon Dioxide 26.1 mEq/L (21.0-31.0) 10/05/17 15:44 Anion Gap 11.0 (7.0-16.0) 10/05/17 15:44 BUN 27 mg/dL (7-25) H 10/05/17 15:44 Creatinine 1.1 mg/dL (0.6-1.2) 10/05/17 15:44 Est GFR ( Amer) > 60.0 ml/min (>90) 10/05/17 15:44 Est GFR (Non-Af Amer) 53.1 ml/min 10/05/17 15:44 BUN/Creatinine Ratio 24.5 10/05/17 15:44 Glucose 122 mg/dL (70-105) H 10/05/17 15:44 POC Glucose 144 MG/DL (70 - 105) H 10/12/17 05:28 Hemoglobin A1c % 7.3 % (4.0-6.0) H 10/05/17 15:44 Calcium 8.9 mg/dL (8.6-10.3) 10/05/17 15:44 Total Bilirubin 0.2 mg/dL (0.3-1.0) L 10/05/17 15:44 AST 20 U/L (13-39) 10/05/17 15:44 ALT 21 U/L (7-52) 10/05/17 15:44 Alkaline Phosphatase 103 U/L (34-104) 10/05/17 15:44 Total Protein 6.6 gm/dL (6.0-8.3) 10/05/17 15:44 Albumin 3.6 gm/dL (3.7-5.3) L 10/05/17 15:44 Globulin 3.0 gm/dL 10/05/17 15:44 Albumin/Globulin Ratio 1.2 (1.0-1.8) 10/05/17 15:44 Triglycerides 337 mg/dL (<150) H 10/05/17 15:44 Cholesterol 160 mg/dL (<200) 10/05/17 15:44 LDL Cholesterol Direct 76 mg/dL (75-193) 10/05/17 15:44 HDL Cholesterol 36 mg/dL (23-92) 10/05/17 15:44 TSH 3.92 uIU/ml (0.34-5.60) 10/05/17 15:44 Salicylates < 25.0 mg/L (30.0-100.0) L 10/05/17 15:44 Acetaminophen < 10.0 ug/mL (10.0-30.0) L 10/05/17 15:44 Valproic Acid 24.2 ug/mL (50.0-100.0) L 10/08/17 11:18 Ethyl Alcohol < 10 mg/dL (0-10) 10/05/17 15:44 RPR NONREACTIVE (NONREACTIVE) 10/05/17 15:44 - Physical Exam Vitals and I&O: Vital Signs Temp 97.6 F 10/11/17 20:17 Pulse 86 10/11/17 20:17 Resp 18 10/11/17 20:17 BP 139/78 10/11/17 20:17 Pulse Ox 98 10/11/17 20:17 Intake & Output 10/11/17 10/12/17 10/12/17 18:59 06:59 18:59 Intake Total 950 240 Balance 950 240 Weight (lbs) 175 lb Intake: Oral 950 240 Other: # Voids 4 3 # Bowel Movements 1 0 Stool Characteristics Soft Soft Brown Brown Weight Source Bedscale Active Medications: Current Medications Calcium/Vitamin D (Oscal W/Vitamin D) 2 tab PO BID [facility] Stop: 12/05/17 08:59 Last Admin: 10/12/17 09:04 Dose: 2 tab Divalproex Sodium (Depakote Dr) 250 mg PO BID [facility] Stop: 12/06/17 16:59 Last Admin: 10/12/17 09:05 Dose: 250 mg Docusate Sodium (Colace) 250 mg PO DAILY [facility] Stop: 12/05/17 08:59 Last Admin: 10/12/17 09:06 Dose: 250 mg Ferrous Sulfate (Iron) 325 mg PO BID [facility] Stop: 12/05/17 08:59 Last Admin: 10/12/17 09:04 Dose: 325 mg Ibuprofen (Motrin) 400 mg PO Q8H PRN PRN Reason: Pain (Moderate) Stop: 12/08/17 09:52 Last Admin: 10/11/17 20:18 Dose: 400 mg Levothyroxine Sodium (Synthroid) 0.088 mg PO QDAC [facility] Stop: 12/05/17 07:29 Lorazepam (Ativan) 0.5 mg PO Q6HR PRN; Protocol PRN Reason: Agitation Stop: 12/05/17 14:53 Last Admin: 10/11/17 20:18 Dose: 0.5 mg Metformin HCl (Glucophage) 1,000 mg PO BID [facility] Stop: 12/05/17 08:59 Last Admin: 10/12/17 09:05 Dose: 1,000 mg Pioglitazone HCl (Actos) 45 mg PO DAILY [facility] Stop: 12/05/17 08:59 Last Admin: 10/12/17 09:05 Dose: 45 mg Quetiapine Fumarate (Seroquel) 300 mg PO BID [facility] Stop: 12/05/17 16:59 Last Admin: 10/12/17 09:04 Dose: 300 mg General: alert HEENT: NC/AT, PERRLA Neck: Supple Lungs: CTAB Cardiovascular: RRR, Normal S1, Normal S2, without murmur Abdomen: soft, non-tender, non-distended, positive bowel sound Neurological: alert Internal Medicine Assmt/Plan - Assessment Assessment: PSYCHOSIS HYPOTHYROIDISM IRON DEFICIENCY ANEMIA DM OA - Plan Plan: FALL PRECAUTIONS CONTINUE CURRENT PLAN OF CARE Nutritional Asmnt/Malnutr-PDOC - Dietary Evaluation Malnutrition Findings (Please click <Entered> for more info): Nutritional Asmnt/Malnutrition Start: 10/09/17 13: 40 Text: Status: Active Freq: Document 10/09/17 13:40 LCHENG (Rec: 10/09/17 13:57 LCHENG FRANCISCO [email or web address]) Nutritional Asmnt/Malnutrition Patient General Information Nutritional Screening Moderate Risk Diagnosis psychosis Pertinent Medical Hx/Surgical Hx HTN, DM, anemia, constipation, hypothyroidism Subjective Information Pt seen sitting up in bed taking soup, [place] Islander speaking. Per ADMINISTRATIVE SUPPORT SPECIALIST, pt eats 100% of meals, always ask for extra food. Current Diet Order/ Nutrition Support CCHO-60gm, low fat, low cholesterol, small portion Pertinent Medications oscal w/vit D, colace, Iron, synthroid, gluophage, seroquel Pertinent Labs 10/05 Na 135, BUN 27, glucose 122, A1c 7.3, alb 3.6 10/06-10/07 POC 89-126 Nutritional Hx/Data Height 5 ft 2 in Height (Calculated Centimeters) 157.5 Current Weight (lbs) 175 lb Weight (Calculated Kilograms) 79.4 Weight (Calculated Grams) 98211.7 [place] Body Weight 110 Body Mass Index (BMI) 32.0 Weight Status Obese GI Symptoms GI Symptoms None Last BM 4/6 Difficult in: None Skin Integrity/Comment: intact 1+pitting edema to left and right arms marlena score 21 Current %PO Good (75-100%) Estimated Nutritional Goals BEE in Kcals: Adj wt of IBW Calories/Kcals/Kg 25-30 Kcals Calculated 0829-6296 Protein: Adj wt of IBW Protein g/k-1.2 Protein Calculated 57-68 Fluid: ml 1425-1710ml (1ml/kcal) Nutritional Problem 1. Problem Problem altered nutrition related lab values Etiology hx of DM Signs/Symptoms: glucose 122, A1c 7.3, POC 89- 126 Malnutrition Alert Protein-Calorie Malnutrition N/A Is there a minimum of two criteria No selected? Query Text:Check all the applicable criteria. A minimum of two criteria are recommended for diagnosis of either severe or non-severe malnutrition. Intervention/Recommendation Comments 1. Continue with current diet as ordered. 2. Monitor PO intake, wt, labs and skin integrity 3. F/U as moderate risk in 3-5 days, 10/12-10/14 Expected Outcomes/Goals Expected Outcomes/Goals 1. PO intake to meet at least 75% of nutritional needs. 2. Wt stability, skin to remain intact, labs to approach WNL.
--- NOTE | 2017-10-13 08:56 | General Progress Note ---
Subjective - Review of Systems Events since last encounter: confused and disoriented denies pain Objective - Results Result Diagrams: 10/05/17 15:44 10/05/17 15:44 Recent Labs: Laboratory Last Values WBC 5.5 Th/cmm (4.8-10.8) 10/05/17 15:44 RBC 3.46 Mil/cmm (3.80-5.10) L 10/05/17 15:44 Hgb 10.2 gm/dL (12-16) L 10/05/17 15:44 Hct 30.7 % (41.0-60) L 10/05/17 15:44 MCV 88.7 fl (81-100) 10/05/17 15:44 MCH 29.5 pg (27.0-31.0) 10/05/17 15:44 MCHC Differential 33.2 pg (28.0-36.0) 10/05/17 15:44 RDW 13.8 % (11.5-20.0) 10/05/17 15:44 Plt Count 225 Th/cmm (150-400) 10/05/17 15:44 MPV 9.2 fl 10/05/17 15:44 Neutrophils % 65.6 % (40.0-80.0) 10/05/17 15:44 Lymphocytes % 25.0 % (20.0-50.0) 10/05/17 15:44 Monocytes % 6.2 % (2.0-10.0) 10/05/17 15:44 Eosinophils % 2.7 % (0.0-5.0) 10/05/17 15:44 Basophils % 0.5 % (0.0-2.0) 10/05/17 15:44 Sodium 135 mEq/L (136-145) L 10/05/17 15:44 Potassium 4.1 mEq/L (3.5-5.1) 10/05/17 15:44 Chloride 102 mEq/L (98-107) 10/05/17 15:44 Carbon Dioxide 26.1 mEq/L (21.0-31.0) 10/05/17 15:44 Anion Gap 11.0 (7.0-16.0) 10/05/17 15:44 BUN 27 mg/dL (7-25) H 10/05/17 15:44 Creatinine 1.1 mg/dL (0.6-1.2) 10/05/17 15:44 Est GFR ( Amer) > 60.0 ml/min (>90) 10/05/17 15:44 Est GFR (Non-Af Amer) 53.1 ml/min 10/05/17 15:44 BUN/Creatinine Ratio 24.5 10/05/17 15:44 Glucose 122 mg/dL (70-105) H 10/05/17 15:44 POC Glucose 122 MG/DL (70 - 105) H 10/12/17 20:11 Hemoglobin A1c % 7.3 % (4.0-6.0) H 10/05/17 15:44 Calcium 8.9 mg/dL (8.6-10.3) 10/05/17 15:44 Total Bilirubin 0.2 mg/dL (0.3-1.0) L 10/05/17 15:44 AST 20 U/L (13-39) 10/05/17 15:44 ALT 21 U/L (7-52) 10/05/17 15:44 Alkaline Phosphatase 103 U/L (34-104) 10/05/17 15:44 Total Protein 6.6 gm/dL (6.0-8.3) 10/05/17 15:44 Albumin 3.6 gm/dL (3.7-5.3) L 10/05/17 15:44 Globulin 3.0 gm/dL 10/05/17 15:44 Albumin/Globulin Ratio 1.2 (1.0-1.8) 10/05/17 15:44 Triglycerides 337 mg/dL (<150) H 10/05/17 15:44 Cholesterol 160 mg/dL (<200) 10/05/17 15:44 LDL Cholesterol Direct 76 mg/dL (75-193) 10/05/17 15:44 HDL Cholesterol 36 mg/dL (23-92) 10/05/17 15:44 TSH 3.92 uIU/ml (0.34-5.60) 10/05/17 15:44 Salicylates < 25.0 mg/L (30.0-100.0) L 10/05/17 15:44 Acetaminophen < 10.0 ug/mL (10.0-30.0) L 10/05/17 15:44 Valproic Acid 24.2 ug/mL (50.0-100.0) L 10/08/17 11:18 Ethyl Alcohol < 10 mg/dL (0-10) 10/05/17 15:44 RPR NONREACTIVE (NONREACTIVE) 10/05/17 15:44 - Physical Exam Vitals and I&O: Vital Signs Temp 98.1 F 10/12/17 20:14 Pulse 100 10/12/17 20:14 Resp 20 10/12/17 20:14 BP 120/75 10/12/17 20:14 Pulse Ox 97 10/12/17 20:14 Intake & Output 10/12/17 10/13/17 10/13/17 18:59 06:59 18:59 Intake Total 900 360 Balance 900 360 Intake: Oral 900 360 Other: # Voids 3 2 # Bowel Movements 1 0 Stool Characteristics Soft Soft Soft Brown Brown Brown Active Medications: Current Medications Calcium/Vitamin D (Oscal W/Vitamin D) 2 tab PO BID [facility] Stop: 12/05/17 08:59 Last Admin: 10/12/17 17:08 Dose: Not Given Divalproex Sodium (Depakote Dr) 500 mg PO BID [facility] Stop: 12/12/17 06:03 Docusate Sodium (Colace) 250 mg PO DAILY [facility] Stop: 12/05/17 08:59 Last Admin: 10/12/17 09:06 Dose: 250 mg Ferrous Sulfate (Iron) 325 mg PO BID [facility] Stop: 12/05/17 08:59 Last Admin: 10/12/17 17:07 Dose: Not Given Ibuprofen (Motrin) 400 mg PO Q8H PRN PRN Reason: Pain (Moderate) Stop: 12/08/17 09:52 Last Admin: 10/11/17 20:18 Dose: 400 mg Levothyroxine Sodium (Synthroid) 0.088 mg PO QDAC [facility] Stop: 12/05/17 07:29 Lorazepam (Ativan) 0.5 mg PO Q6HR PRN; Protocol PRN Reason: Agitation Stop: 12/05/17 14:53 Last Admin: 10/12/17 21:10 Dose: 0.5 mg Metformin HCl (Glucophage) 1,000 mg PO BID [facility] Stop: 12/05/17 08:59 Last Admin: 10/12/17 17:07 Dose: Not Given Pioglitazone HCl (Actos) 45 mg PO DAILY [facility] Stop: 12/05/17 08:59 Last Admin: 10/12/17 09:05 Dose: 45 mg Quetiapine Fumarate (Seroquel) 300 mg PO BID [facility] Stop: 12/05/17 16:59 Last Admin: 10/12/17 17:08 Dose: Not Given Assessment/Plan - Assessment Assessment: psychosis bipolar disorder medical clearance - Plan Plan: as per ordersheet Nutritional Asmnt/Malnutr-PDOC - Dietary Evaluation Malnutrition Findings (Please click <Entered> for more info): Nutritional Asmnt/Malnutrition Start: 10/09/17 13: 40 Text: Status: Active Freq: Document 10/09/17 13:40 ALICIA (Rec: 10/09/17 13:57 [facility] Nutritional Asmnt/Malnutrition Patient General Information Nutritional Screening Moderate Risk Diagnosis psychosis Pertinent Medical Hx/Surgical Hx HTN, DM, anemia, constipation, hypothyroidism Subjective Information Pt seen sitting up in bed taking soup, Guyanese speaking. Per PLATE WORKER, pt eats 100% of meals, always ask for extra food. Current Diet Order/ Nutrition Support CCHO-60gm, low fat, low cholesterol, small portion Pertinent Medications oscal w/vit D, colace, Iron, synthroid, gluophage, seroquel Pertinent Labs 10/05 Na 135, BUN 27, glucose 122, A1c 7.3, alb 3.6 10/06-10/07 POC 89-126 Nutritional Hx/Data Height 1.57 m Height (Calculated Centimeters) 157.5 Current Weight (lbs) 79.379 kg Weight (Calculated Kilograms) 79.4 Weight (Calculated Grams) 84929.7 [place] Body Weight 110 Body Mass Index (BMI) 32.0 Weight Status Obese GI Symptoms GI Symptoms None Last BM 4/6 Difficult in: None Skin Integrity/Comment: intact 1+pitting edema to left and right arms marlena score 21 Current %PO Good (75-100%) Estimated Nutritional Goals BEE in Kcals: Adj wt of IBW Calories/Kcals/Kg 25-30 Kcals Calculated 8728-4149 Protein: Adj wt of IBW Protein g/k-1.2 Protein Calculated 57-68 Fluid: ml 1425-1710ml (1ml/kcal) Nutritional Problem 1. Problem Problem altered nutrition related lab values Etiology hx of DM Signs/Symptoms: glucose 122, A1c 7.3, POC 89- 126 Malnutrition Alert Protein-Calorie Malnutrition N/A Is there a minimum of two criteria No selected? Query Text:Check all the applicable criteria. A minimum of two criteria are recommended for diagnosis of either severe or non-severe malnutrition. Intervention/Recommendation Comments 1. Continue with current diet as ordered. 2. Monitor PO intake, wt, labs and skin integrity 3. F/U as moderate risk in 3-5 days, 10/12-10/14 Expected Outcomes/Goals Expected Outcomes/Goals 1. PO intake to meet at least 75% of nutritional needs. 2. Wt stability, skin to remain intact, labs to approach WNL.
[2017-10-13] MEDS: Ferrous Sulfate 325 MG TAB PO SCH ×2 (09:47→16:48)
[2017-10-13] MEDS: Calcium Carb/Vit D 500 mg/200 U Tab PO SCH ×2 (09:47→16:48)
--- NOTE | 2017-10-13 20:45 | Progress Notes ---
DATE: 10/13/2017 SUBJECTIVE: Chart reviewed and the patient interviewed. Also discussed the patient's condition with the staff and reviewed records and labs. The patient kept staring at me in a confused state and she refused to answer any of my questions, which might be because of her paranoia. The patient also was easily irritable and easily agitated. She also has been restless and having episodes of yelling and screaming and also she is in irritable mood and agitated. The patient also according to staff, has bizarre thoughts. She also slept only 3 hours last night. During interview, the patient is disheveled and seems to be preoccupied and did not answer most of my questions and kept staring at me in a confused state. ASSESSMENT: The patient is still psychotic and she is still agitated. TREATMENT PLAN: We will continue monitoring her behavior and her condition closely. Also, we will increase Depakote to 500 mg twice a day. Also, Depakote blood level that was done on 10/08/2017 came back to be 24.2, which is below therapeutic level. ESTIMATED LENGTH OF STAY: 4-6 days. REASON TO CONTINUE HOSPTIAL STAY: The patient is still agitated and in irritable and in angry moods. [facility]# [id number]
[2017-10-14] MEDS: Calcium Carb/Vit D 500 mg/200 U Tab PO SCH ×2 (09:04→16:42)
[2017-10-14] MEDS: Ferrous Sulfate 325 MG TAB PO SCH ×2 (09:04→16:42)
--- NOTE | 2017-10-14 20:23 | Internal Medicine Prog Note ---
Internal Medicine Subjective - Subjective Patient is:: awake, verbal, confused Per staff patient has:: tolerating meds Internal Medicine Objective - Results Result Diagrams: 10/05/17 15:44 10/05/17 15:44 Recent Labs: Laboratory Last Values WBC 5.5 Th/cmm (4.8-10.8) 10/05/17 15:44 RBC 3.46 Mil/cmm (3.80-5.10) L 10/05/17 15:44 Hgb 10.2 gm/dL (12-16) L 10/05/17 15:44 Hct 30.7 % (41.0-60) L 10/05/17 15:44 MCV 88.7 fl (81-100) 10/05/17 15:44 MCH 29.5 pg (27.0-31.0) 10/05/17 15:44 MCHC Differential 33.2 pg (28.0-36.0) 10/05/17 15:44 RDW 13.8 % (11.5-20.0) 10/05/17 15:44 Plt Count 225 Th/cmm (150-400) 10/05/17 15:44 MPV 9.2 fl 10/05/17 15:44 Neutrophils % 65.6 % (40.0-80.0) 10/05/17 15:44 Lymphocytes % 25.0 % (20.0-50.0) 10/05/17 15:44 Monocytes % 6.2 % (2.0-10.0) 10/05/17 15:44 Eosinophils % 2.7 % (0.0-5.0) 10/05/17 15:44 Basophils % 0.5 % (0.0-2.0) 10/05/17 15:44 Sodium 135 mEq/L (136-145) L 10/05/17 15:44 Potassium 4.1 mEq/L (3.5-5.1) 10/05/17 15:44 Chloride 102 mEq/L (98-107) 10/05/17 15:44 Carbon Dioxide 26.1 mEq/L (21.0-31.0) 10/05/17 15:44 Anion Gap 11.0 (7.0-16.0) 10/05/17 15:44 BUN 27 mg/dL (7-25) H 10/05/17 15:44 Creatinine 1.1 mg/dL (0.6-1.2) 10/05/17 15:44 Est GFR ( Amer) > 60.0 ml/min (>90) 10/05/17 15:44 Est GFR (Non-Af Amer) 53.1 ml/min 10/05/17 15:44 BUN/Creatinine Ratio 24.5 10/05/17 15:44 Glucose 122 mg/dL (70-105) H 10/05/17 15:44 POC Glucose 122 MG/DL (70 - 105) H 10/12/17 20:11 Hemoglobin A1c % 7.3 % (4.0-6.0) H 10/05/17 15:44 Calcium 8.9 mg/dL (8.6-10.3) 10/05/17 15:44 Total Bilirubin 0.2 mg/dL (0.3-1.0) L 10/05/17 15:44 AST 20 U/L (13-39) 10/05/17 15:44 ALT 21 U/L (7-52) 10/05/17 15:44 Alkaline Phosphatase 103 U/L (34-104) 10/05/17 15:44 Total Protein 6.6 gm/dL (6.0-8.3) 10/05/17 15:44 Albumin 3.6 gm/dL (3.7-5.3) L 10/05/17 15:44 Globulin 3.0 gm/dL 10/05/17 15:44 Albumin/Globulin Ratio 1.2 (1.0-1.8) 10/05/17 15:44 Triglycerides 337 mg/dL (<150) H 10/05/17 15:44 Cholesterol 160 mg/dL (<200) 10/05/17 15:44 LDL Cholesterol Direct 76 mg/dL (75-193) 10/05/17 15:44 HDL Cholesterol 36 mg/dL (23-92) 10/05/17 15:44 TSH 3.92 uIU/ml (0.34-5.60) 10/05/17 15:44 Salicylates < 25.0 mg/L (30.0-100.0) L 10/05/17 15:44 Acetaminophen < 10.0 ug/mL (10.0-30.0) L 10/05/17 15:44 Valproic Acid 24.2 ug/mL (50.0-100.0) L 10/08/17 11:18 Ethyl Alcohol < 10 mg/dL (0-10) 10/05/17 15:44 RPR NONREACTIVE (NONREACTIVE) 10/05/17 15:44 - Physical Exam Vitals and I&O: Vital Signs Temp 97.6 F 10/14/17 14:00 Pulse 93 10/14/17 14:00 Resp 20 10/14/17 14:00 BP 127/84 10/14/17 14:00 Pulse Ox 97 10/14/17 14:00 Intake & Output 10/14/17 10/14/17 10/15/17 06:59 18:59 06:59 Intake Total 120 1400 Balance 120 1400 Intake: Oral 120 1400 Other: # Voids 3 4 # Bowel Movements 1 Stool Characteristics Soft Brown Active Medications: Current Medications Calcium/Vitamin D (Oscal W/Vitamin D) 2 tab PO BID [facility] Stop: 12/05/17 08:59 Last Admin: 10/14/17 16:42 Dose: Not Given Divalproex Sodium (Depakote Dr) 500 mg PO BID [facility] Stop: 12/12/17 06:03 Last Admin: 10/14/17 16:42 Dose: Not Given Docusate Sodium (Colace) 250 mg PO DAILY [facility] Stop: 12/05/17 08:59 Last Admin: 10/14/17 09:04 Dose: Not Given Ferrous Sulfate (Iron) 325 mg PO BID [facility] Stop: 12/05/17 08:59 Last Admin: 10/14/17 16:42 Dose: Not Given Ibuprofen (Motrin) 400 mg PO Q8H PRN PRN Reason: Pain (Moderate) Stop: 12/08/17 09:52 Last Admin: 10/11/17 20:18 Dose: 400 mg Levothyroxine Sodium (Synthroid) 0.088 mg PO QDAC [facility] Stop: 12/05/17 07:29 Lorazepam (Ativan) 0.5 mg PO Q6HR PRN; Protocol PRN Reason: Agitation Stop: 12/05/17 14:53 Last Admin: 10/12/17 21:10 Dose: 0.5 mg Metformin HCl (Glucophage) 1,000 mg PO BID [facility] Stop: 12/05/17 08:59 Last Admin: 10/14/17 16:42 Dose: Not Given Pioglitazone HCl (Actos) 45 mg PO DAILY [facility] Stop: 12/05/17 08:59 Last Admin: 10/14/17 09:13 Dose: Not Given Quetiapine Fumarate (Seroquel) 300 mg PO BID [facility] Stop: 12/05/17 16:59 Last Admin: 10/14/17 16:42 Dose: Not Given General: alert HEENT: NC/AT, PERRLA Neck: Supple Lungs: CTAB Cardiovascular: RRR, Normal S1, Normal S2, without murmur Abdomen: soft, non-tender, non-distended, positive bowel sound Neurological: alert Internal Medicine Assmt/Plan - Assessment Assessment: psychosis bipolar disorder medical clearance - Plan Plan: as per ordersheet Nutritional Asmnt/Malnutr-PDOC - Dietary Evaluation Malnutrition Findings (Please click <Entered> for more info): Nutritional Asmnt/Malnutrition Start: 10/09/17 13: 40 Text: Status: Complete Freq: Document 10/09/17 13:40 JASMIN (Rec: 10/09/17 13:57 [facility] Nutritional Asmnt/Malnutrition Patient General Information Nutritional Screening Moderate Risk Diagnosis psychosis Pertinent Medical Hx/Surgical Hx HTN, DM, anemia, constipation, hypothyroidism Subjective Information Pt seen sitting up in bed taking soup, Malay speaking. Per CHAIR UPHOLSTERER, pt eats 100% of meals, always ask for extra food. Current Diet Order/ Nutrition Support CCHO-60gm, low fat, low cholesterol, small portion Pertinent Medications oscal w/vit D, colace, Iron, synthroid, gluophage, seroquel Pertinent Labs 10/05 Na 135, BUN 27, glucose 122, A1c 7.3, alb 3.6 10/06-10/07 POC 89-126 Nutritional Hx/Data Height 1.57 m Height (Calculated Centimeters) 157.5 Current Weight (lbs) 79.379 kg Weight (Calculated Kilograms) 79.4 Weight (Calculated Grams) 55956.7 [place] Body Weight 110 Body Mass Index (BMI) 32.0 Weight Status Obese GI Symptoms GI Symptoms None Last BM 4/6 Difficult in: None Skin Integrity/Comment: intact 1+pitting edema to left and right arms marlena score 21 Current %PO Good (75-100%) Estimated Nutritional Goals BEE in Kcals: Adj wt of IBW Calories/Kcals/Kg 25-30 Kcals Calculated 9977-2740 Protein: Adj wt of IBW Protein g/k-1.2 Protein Calculated 57-68 Fluid: ml 1425-1710ml (1ml/kcal) Nutritional Problem 1. Problem Problem altered nutrition related lab values Etiology hx of DM Signs/Symptoms: glucose 122, A1c 7.3, POC 89- 126 Malnutrition Alert Protein-Calorie Malnutrition N/A Is there a minimum of two criteria No selected? Query Text:Check all the applicable criteria. A minimum of two criteria are recommended for diagnosis of either severe or non-severe malnutrition. Intervention/Recommendation Comments 1. Continue with current diet as ordered. 2. Monitor PO intake, wt, labs and skin integrity 3. F/U as moderate risk in 3-5 days, 10/12-10/14 Expected Outcomes/Goals Expected Outcomes/Goals 1. PO intake to meet at least 75% of nutritional needs. 2. Wt stability, skin to remain intact, labs to approach WNL.
[2017-10-15] MEDS: Calcium Carb/Vit D 500 mg/200 U Tab PO SCH ×2 (08:44→16:32)
[2017-10-15] MEDS: Ferrous Sulfate 325 MG TAB PO SCH ×2 (08:45→16:32)
--- NOTE | 2017-10-15 13:36 | Internal Medicine Prog Note ---
Internal Medicine Subjective - Subjective Service Date: 10/15/17 Patient is:: awake, verbal, confused Per staff patient has:: tolerating meds Internal Medicine Objective - Results Result Diagrams: 10/05/17 15:44 10/05/17 15:44 Recent Labs: Laboratory Last Values WBC 5.5 Th/cmm (4.8-10.8) 10/05/17 15:44 RBC 3.46 Mil/cmm (3.80-5.10) L 10/05/17 15:44 Hgb 10.2 gm/dL (12-16) L 10/05/17 15:44 Hct 30.7 % (41.0-60) L 10/05/17 15:44 MCV 88.7 fl (81-100) 10/05/17 15:44 MCH 29.5 pg (27.0-31.0) 10/05/17 15:44 MCHC Differential 33.2 pg (28.0-36.0) 10/05/17 15:44 RDW 13.8 % (11.5-20.0) 10/05/17 15:44 Plt Count 225 Th/cmm (150-400) 10/05/17 15:44 MPV 9.2 fl 10/05/17 15:44 Neutrophils % 65.6 % (40.0-80.0) 10/05/17 15:44 Lymphocytes % 25.0 % (20.0-50.0) 10/05/17 15:44 Monocytes % 6.2 % (2.0-10.0) 10/05/17 15:44 Eosinophils % 2.7 % (0.0-5.0) 10/05/17 15:44 Basophils % 0.5 % (0.0-2.0) 10/05/17 15:44 Sodium 135 mEq/L (136-145) L 10/05/17 15:44 Potassium 4.1 mEq/L (3.5-5.1) 10/05/17 15:44 Chloride 102 mEq/L (98-107) 10/05/17 15:44 Carbon Dioxide 26.1 mEq/L (21.0-31.0) 10/05/17 15:44 Anion Gap 11.0 (7.0-16.0) 10/05/17 15:44 BUN 27 mg/dL (7-25) H 10/05/17 15:44 Creatinine 1.1 mg/dL (0.6-1.2) 10/05/17 15:44 Est GFR ( Amer) > 60.0 ml/min (>90) 10/05/17 15:44 Est GFR (Non-Af Amer) 53.1 ml/min 10/05/17 15:44 BUN/Creatinine Ratio 24.5 10/05/17 15:44 Glucose 122 mg/dL (70-105) H 10/05/17 15:44 POC Glucose 122 MG/DL (70 - 105) H 10/12/17 20:11 Hemoglobin A1c % 7.3 % (4.0-6.0) H 10/05/17 15:44 Calcium 8.9 mg/dL (8.6-10.3) 10/05/17 15:44 Total Bilirubin 0.2 mg/dL (0.3-1.0) L 10/05/17 15:44 AST 20 U/L (13-39) 10/05/17 15:44 ALT 21 U/L (7-52) 10/05/17 15:44 Alkaline Phosphatase 103 U/L (34-104) 10/05/17 15:44 Total Protein 6.6 gm/dL (6.0-8.3) 10/05/17 15:44 Albumin 3.6 gm/dL (3.7-5.3) L 10/05/17 15:44 Globulin 3.0 gm/dL 10/05/17 15:44 Albumin/Globulin Ratio 1.2 (1.0-1.8) 10/05/17 15:44 Triglycerides 337 mg/dL (<150) H 10/05/17 15:44 Cholesterol 160 mg/dL (<200) 10/05/17 15:44 LDL Cholesterol Direct 76 mg/dL (75-193) 10/05/17 15:44 HDL Cholesterol 36 mg/dL (23-92) 10/05/17 15:44 TSH 3.92 uIU/ml (0.34-5.60) 10/05/17 15:44 Salicylates < 25.0 mg/L (30.0-100.0) L 10/05/17 15:44 Acetaminophen < 10.0 ug/mL (10.0-30.0) L 10/05/17 15:44 Valproic Acid 24.2 ug/mL (50.0-100.0) L 10/08/17 11:18 Ethyl Alcohol < 10 mg/dL (0-10) 10/05/17 15:44 RPR NONREACTIVE (NONREACTIVE) 10/05/17 15:44 - Physical Exam Vitals and I&O: Vital Signs Temp 97.6 F 10/14/17 14:00 Pulse 93 10/14/17 14:00 Resp 19 10/14/17 20:00 BP 127/84 10/14/17 14:00 Pulse Ox 97 10/14/17 14:00 Intake & Output 10/14/17 10/15/17 10/15/17 18:59 06:59 18:59 Intake Total 1400 240 Balance 1400 240 Intake: Oral 1400 240 Other: # Voids 4 2 # Bowel Movements 1 0 Stool Characteristics Soft Soft Brown Brown Active Medications: Current Medications Calcium/Vitamin D (Oscal W/Vitamin D) 2 tab PO BID [facility] Stop: 12/05/17 08:59 Last Admin: 10/15/17 08:44 Dose: 2 tab Divalproex Sodium (Depakote Dr) 500 mg PO BID [facility] Stop: 12/12/17 06:03 Last Admin: 10/15/17 08:43 Dose: 500 mg Docusate Sodium (Colace) 250 mg PO DAILY [facility] Stop: 12/05/17 08:59 Last Admin: 10/15/17 08:45 Dose: 250 mg Ferrous Sulfate (Iron) 325 mg PO BID [facility] Stop: 12/05/17 08:59 Last Admin: 10/15/17 08:45 Dose: 325 mg Ibuprofen (Motrin) 400 mg PO Q8H PRN PRN Reason: Pain (Moderate) Stop: 12/08/17 09:52 Last Admin: 10/11/17 20:18 Dose: 400 mg Levothyroxine Sodium (Synthroid) 0.088 mg PO QDAC [facility] Stop: 12/05/17 07:29 Lorazepam (Ativan) 0.5 mg PO Q6HR PRN; Protocol PRN Reason: Agitation Stop: 12/05/17 14:53 Last Admin: 10/12/17 21:10 Dose: 0.5 mg Metformin HCl (Glucophage) 1,000 mg PO BID [facility] Stop: 12/05/17 08:59 Last Admin: 10/15/17 08:43 Dose: 1,000 mg Pioglitazone HCl (Actos) 45 mg PO DAILY [facility] Stop: 12/05/17 08:59 Last Admin: 10/15/17 08:44 Dose: 45 mg Quetiapine Fumarate (Seroquel) 300 mg PO BID [facility] Stop: 12/05/17 16:59 Last Admin: 10/15/17 08:45 Dose: 300 mg General: alert HEENT: NC/AT, PERRLA Neck: Supple Lungs: CTAB Cardiovascular: RRR, Normal S1, Normal S2, without murmur Abdomen: soft, non-tender, non-distended, positive bowel sound Neurological: alert Internal Medicine Assmt/Plan - Assessment Assessment: PSYCHOSIS HYPOTHYROIDISM IRON DEFICIENCY ANEMIA DM OA - Plan Plan: FALL PRECAUTIONS CONTINUE CURRENT PLAN OF CARE Nutritional Asmnt/Malnutr-PDOC - Dietary Evaluation Malnutrition Findings (Please click <Entered> for more info): Nutritional Asmnt/Malnutrition Start: 10/09/17 13: 40 Text: Status: Complete Freq: Document 10/09/17 13:40 HEN (Rec: 10/09/17 13:57 [email or web address]) Nutritional Asmnt/Malnutrition Patient General Information Nutritional Screening Moderate Risk Diagnosis psychosis Pertinent Medical Hx/Surgical Hx HTN, DM, anemia, constipation, hypothyroidism Subjective Information Pt seen sitting up in bed taking soup, Scottish speaking. Per DATA SCIENCE AND IOT MANAGER, pt eats 100% of meals, always ask for extra food. Current Diet Order/ Nutrition Support CCHO-60gm, low fat, low cholesterol, small portion Pertinent Medications oscal w/vit D, colace, Iron, synthroid, gluophage, seroquel Pertinent Labs 10/05 Na 135, BUN 27, glucose 122, A1c 7.3, alb 3.6 10/06-10/07 POC 89-126 Nutritional Hx/Data Height 5 ft 2 in Height (Calculated Centimeters) 157.5 Current Weight (lbs) 175 lb Weight (Calculated Kilograms) 79.4 Weight (Calculated Grams) 05447.7 [place] Body Weight 110 Body Mass Index (BMI) 32.0 Weight Status Obese GI Symptoms GI Symptoms None Last BM 4/6 Difficult in: None Skin Integrity/Comment: intact 1+pitting edema to left and right arms marlena score 21 Current %PO Good (75-100%) Estimated Nutritional Goals BEE in Kcals: Adj wt of IBW Calories/Kcals/Kg 25-30 Kcals Calculated 7602-0226 Protein: Adj wt of IBW Protein g/k-1.2 Protein Calculated 57-68 Fluid: ml 1425-1710ml (1ml/kcal) Nutritional Problem 1. Problem Problem altered nutrition related lab values Etiology hx of DM Signs/Symptoms: glucose 122, A1c 7.3, POC 89- 126 Malnutrition Alert Protein-Calorie Malnutrition N/A Is there a minimum of two criteria No selected? Query Text:Check all the applicable criteria. A minimum of two criteria are recommended for diagnosis of either severe or non-severe malnutrition. Intervention/Recommendation Comments 1. Continue with current diet as ordered. 2. Monitor PO intake, wt, labs and skin integrity 3. F/U as moderate risk in 3-5 days, 10/12-10/14 Expected Outcomes/Goals Expected Outcomes/Goals 1. PO intake to meet at least 75% of nutritional needs. 2. Wt stability, skin to remain intact, labs to approach WNL.
[2017-10-16] MEDS: Calcium Carb/Vit D 500 mg/200 U Tab PO SCH ×3 (09:02→16:50)
[2017-10-16] MEDS: Ferrous Sulfate 325 MG TAB PO SCH ×3 (09:02→16:50)
--- NOTE | 2017-10-16 10:39 | Internal Medicine Prog Note ---
Internal Medicine Subjective - Subjective Patient is:: awake, verbal, confused Per staff patient has:: tolerating meds Internal Medicine Objective - Results Result Diagrams: 10/05/17 15:44 10/05/17 15:44 Recent Labs: Laboratory Last Values WBC 5.5 Th/cmm (4.8-10.8) 10/05/17 15:44 RBC 3.46 Mil/cmm (3.80-5.10) L 10/05/17 15:44 Hgb 10.2 gm/dL (12-16) L 10/05/17 15:44 Hct 30.7 % (41.0-60) L 10/05/17 15:44 MCV 88.7 fl (81-100) 10/05/17 15:44 MCH 29.5 pg (27.0-31.0) 10/05/17 15:44 MCHC Differential 33.2 pg (28.0-36.0) 10/05/17 15:44 RDW 13.8 % (11.5-20.0) 10/05/17 15:44 Plt Count 225 Th/cmm (150-400) 10/05/17 15:44 MPV 9.2 fl 10/05/17 15:44 Neutrophils % 65.6 % (40.0-80.0) 10/05/17 15:44 Lymphocytes % 25.0 % (20.0-50.0) 10/05/17 15:44 Monocytes % 6.2 % (2.0-10.0) 10/05/17 15:44 Eosinophils % 2.7 % (0.0-5.0) 10/05/17 15:44 Basophils % 0.5 % (0.0-2.0) 10/05/17 15:44 Sodium 135 mEq/L (136-145) L 10/05/17 15:44 Potassium 4.1 mEq/L (3.5-5.1) 10/05/17 15:44 Chloride 102 mEq/L (98-107) 10/05/17 15:44 Carbon Dioxide 26.1 mEq/L (21.0-31.0) 10/05/17 15:44 Anion Gap 11.0 (7.0-16.0) 10/05/17 15:44 BUN 27 mg/dL (7-25) H 10/05/17 15:44 Creatinine 1.1 mg/dL (0.6-1.2) 10/05/17 15:44 Est GFR ( Amer) > 60.0 ml/min (>90) 10/05/17 15:44 Est GFR (Non-Af Amer) 53.1 ml/min 10/05/17 15:44 BUN/Creatinine Ratio 24.5 10/05/17 15:44 Glucose 122 mg/dL (70-105) H 10/05/17 15:44 POC Glucose 122 MG/DL (70 - 105) H 10/12/17 20:11 Hemoglobin A1c % 7.3 % (4.0-6.0) H 10/05/17 15:44 Calcium 8.9 mg/dL (8.6-10.3) 10/05/17 15:44 Total Bilirubin 0.2 mg/dL (0.3-1.0) L 10/05/17 15:44 AST 20 U/L (13-39) 10/05/17 15:44 ALT 21 U/L (7-52) 10/05/17 15:44 Alkaline Phosphatase 103 U/L (34-104) 10/05/17 15:44 Total Protein 6.6 gm/dL (6.0-8.3) 10/05/17 15:44 Albumin 3.6 gm/dL (3.7-5.3) L 10/05/17 15:44 Globulin 3.0 gm/dL 10/05/17 15:44 Albumin/Globulin Ratio 1.2 (1.0-1.8) 10/05/17 15:44 Triglycerides 337 mg/dL (<150) H 10/05/17 15:44 Cholesterol 160 mg/dL (<200) 10/05/17 15:44 LDL Cholesterol Direct 76 mg/dL (75-193) 10/05/17 15:44 HDL Cholesterol 36 mg/dL (23-92) 10/05/17 15:44 TSH 3.92 uIU/ml (0.34-5.60) 10/05/17 15:44 Salicylates < 25.0 mg/L (30.0-100.0) L 10/05/17 15:44 Acetaminophen < 10.0 ug/mL (10.0-30.0) L 10/05/17 15:44 Valproic Acid 24.2 ug/mL (50.0-100.0) L 10/08/17 11:18 Ethyl Alcohol < 10 mg/dL (0-10) 10/05/17 15:44 RPR NONREACTIVE (NONREACTIVE) 10/05/17 15:44 - Physical Exam Vitals and I&O: Vital Signs Temp 97.8 F 10/15/17 14:00 Pulse 100 10/15/17 20:00 Resp 20 10/15/17 14:00 BP 136/70 10/15/17 14:00 Pulse Ox 97 10/15/17 14:00 Intake & Output 10/15/17 10/16/17 10/16/17 18:59 06:59 18:59 Intake Total 840 Balance 840 Intake: Oral 840 Other: # Voids 4 # Bowel Movements 1 Active Medications: Current Medications Calcium/Vitamin D (Oscal W/Vitamin D) 2 tab PO BID [facility] Stop: 12/05/17 08:59 Last Admin: 10/16/17 09:09 Dose: Not Given Divalproex Sodium (Depakote Dr) 500 mg PO BID [facility] Stop: 12/12/17 06:03 Last Admin: 10/16/17 09:10 Dose: Not Given Docusate Sodium (Colace) 250 mg PO DAILY [facility] Stop: 12/05/17 08:59 Last Admin: 10/16/17 09:10 Dose: Not Given Ferrous Sulfate (Iron) 325 mg PO BID [facility] Stop: 12/05/17 08:59 Last Admin: 10/16/17 09:10 Dose: Not Given Ibuprofen (Motrin) 400 mg PO Q8H PRN PRN Reason: Pain (Moderate) Stop: 12/08/17 09:52 Last Admin: 10/11/17 20:18 Dose: 400 mg Levothyroxine Sodium (Synthroid) 0.088 mg PO QDAC [facility] Stop: 12/05/17 07:29 Lorazepam (Ativan) 0.5 mg PO Q6HR PRN; Protocol PRN Reason: Agitation Stop: 12/05/17 14:53 Last Admin: 10/12/17 21:10 Dose: 0.5 mg Metformin HCl (Glucophage) 1,000 mg PO BID [facility] Stop: 12/05/17 08:59 Last Admin: 10/16/17 09:10 Dose: Not Given Pioglitazone HCl (Actos) 45 mg PO DAILY [facility] Stop: 12/05/17 08:59 Last Admin: 10/16/17 09:10 Dose: Not Given Quetiapine Fumarate (Seroquel) 300 mg PO BID [facility] Stop: 12/05/17 16:59 Last Admin: 10/16/17 09:11 Dose: Not Given General: alert HEENT: NC/AT, PERRLA Neck: Supple Lungs: CTAB Cardiovascular: RRR, Normal S1, Normal S2, without murmur Abdomen: soft, non-tender, non-distended, positive bowel sound Neurological: alert Internal Medicine Assmt/Plan - Assessment Assessment: psychosis bipolar disorder medical clearance - Plan Plan: as per ordersheet Nutritional Asmnt/Malnutr-PDOC - Dietary Evaluation Malnutrition Findings (Please click <Entered> for more info): Nutritional Asmnt/Malnutrition Start: 10/09/17 13: 40 Text: Status: Complete Freq: Document 10/09/17 13:40 HEN (Rec: 10/09/17 13:57 LCHENG FRANCISCO [email or web address]) Nutritional Asmnt/Malnutrition Patient General Information Nutritional Screening Moderate Risk Diagnosis psychosis Pertinent Medical Hx/Surgical Hx HTN, DM, anemia, constipation, hypothyroidism Subjective Information Pt seen sitting up in bed taking soup, [place] Citizen speaking. Per [employer] OFF[employer], pt eats 100% of meals, always ask for extra food. Current Diet Order/ Nutrition Support CCHO-60gm, low fat, low cholesterol, small portion Pertinent Medications oscal w/vit D, colace, Iron, synthroid, gluophage, seroquel Pertinent Labs 10/05 Na 135, BUN 27, glucose 122, A1c 7.3, alb 3.6 10/06-10/07 POC 89-126 Nutritional Hx/Data Height 1.57 m Height (Calculated Centimeters) 157.5 Current Weight (lbs) 79.379 kg Weight (Calculated Kilograms) 79.4 Weight (Calculated Grams) 52690.7 [place] Body Weight 110 Body Mass Index (BMI) 32.0 Weight Status Obese GI Symptoms GI Symptoms None Last BM 4/6 Difficult in: None Skin Integrity/Comment: intact 1+pitting edema to left and right arms marlena score 21 Current %PO Good (75-100%) Estimated Nutritional Goals BEE in Kcals: Adj wt of IBW Calories/Kcals/Kg 25-30 Kcals Calculated 1695-5829 Protein: Adj wt of IBW Protein g/k-1.2 Protein Calculated 57-68 Fluid: ml 1425-1710ml (1ml/kcal) Nutritional Problem 1. Problem Problem altered nutrition related lab values Etiology hx of DM Signs/Symptoms: glucose 122, A1c 7.3, POC 89- 126 Malnutrition Alert Protein-Calorie Malnutrition N/A Is there a minimum of two criteria No selected? Query Text:Check all the applicable criteria. A minimum of two criteria are recommended for diagnosis of either severe or non-severe malnutrition. Intervention/Recommendation Comments 1. Continue with current diet as ordered. 2. Monitor PO intake, wt, labs and skin integrity 3. F/U as moderate risk in 3-5 days, 10/12-10/14 Expected Outcomes/Goals Expected Outcomes/Goals 1. PO intake to meet at least 75% of nutritional needs. 2. Wt stability, skin to remain intact, labs to approach WNL.
--- NOTE | 2017-10-17 02:21 | Progress Notes ---
DATE: 10/16/[address] Bhatt. SUBJECTIVE: Case was discussed with staff of the patient, reviewed records. 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 She is demented, confused. She continues to be unpredictable, impulsive. Continues to be unable to make safe plan for self-care and needing redirection. No side effects with the medication, no sedation, no nausea, no extrapyramidal symptoms and we will continue to work with the patient in group therapy, milieu therapy, and adjust the medications as needed. JOB# [id number]
[2017-10-17] MEDS: Calcium Carb/Vit D 500 mg/200 U Tab PO SCH ×2 (08:10→16:26)
[2017-10-17] MEDS: Ferrous Sulfate 325 MG TAB PO SCH ×2 (08:18→16:27)
--- NOTE | 2017-10-17 12:09 | General Progress Note ---
Subjective - Review of Systems Events since last encounter: patient demented confused awake, in no distress Objective - Results Result Diagrams: 10/05/17 15:44 10/05/17 15:44 Recent Labs: Laboratory Last Values WBC 5.5 Th/cmm (4.8-10.8) 10/05/17 15:44 RBC 3.46 Mil/cmm (3.80-5.10) L 10/05/17 15:44 Hgb 10.2 gm/dL (12-16) L 10/05/17 15:44 Hct 30.7 % (41.0-60) L 10/05/17 15:44 MCV 88.7 fl (81-100) 10/05/17 15:44 MCH 29.5 pg (27.0-31.0) 10/05/17 15:44 MCHC Differential 33.2 pg (28.0-36.0) 10/05/17 15:44 RDW 13.8 % (11.5-20.0) 10/05/17 15:44 Plt Count 225 Th/cmm (150-400) 10/05/17 15:44 MPV 9.2 fl 10/05/17 15:44 Neutrophils % 65.6 % (40.0-80.0) 10/05/17 15:44 Lymphocytes % 25.0 % (20.0-50.0) 10/05/17 15:44 Monocytes % 6.2 % (2.0-10.0) 10/05/17 15:44 Eosinophils % 2.7 % (0.0-5.0) 10/05/17 15:44 Basophils % 0.5 % (0.0-2.0) 10/05/17 15:44 Sodium 135 mEq/L (136-145) L 10/05/17 15:44 Potassium 4.1 mEq/L (3.5-5.1) 10/05/17 15:44 Chloride 102 mEq/L (98-107) 10/05/17 15:44 Carbon Dioxide 26.1 mEq/L (21.0-31.0) 10/05/17 15:44 Anion Gap 11.0 (7.0-16.0) 10/05/17 15:44 BUN 27 mg/dL (7-25) H 10/05/17 15:44 Creatinine 1.1 mg/dL (0.6-1.2) 10/05/17 15:44 Est GFR ( Amer) > 60.0 ml/min (>90) 10/05/17 15:44 Est GFR (Non-Af Amer) 53.1 ml/min 10/05/17 15:44 BUN/Creatinine Ratio 24.5 10/05/17 15:44 Glucose 122 mg/dL (70-105) H 10/05/17 15:44 POC Glucose 94 MG/DL (70 - 105) 10/17/17 11:32 Hemoglobin A1c % 7.3 % (4.0-6.0) H 10/05/17 15:44 Calcium 8.9 mg/dL (8.6-10.3) 10/05/17 15:44 Total Bilirubin 0.2 mg/dL (0.3-1.0) L 10/05/17 15:44 AST 20 U/L (13-39) 10/05/17 15:44 ALT 21 U/L (7-52) 10/05/17 15:44 Alkaline Phosphatase 103 U/L (34-104) 10/05/17 15:44 Total Protein 6.6 gm/dL (6.0-8.3) 10/05/17 15:44 Albumin 3.6 gm/dL (3.7-5.3) L 10/05/17 15:44 Globulin 3.0 gm/dL 10/05/17 15:44 Albumin/Globulin Ratio 1.2 (1.0-1.8) 10/05/17 15:44 Triglycerides 337 mg/dL (<150) H 10/05/17 15:44 Cholesterol 160 mg/dL (<200) 10/05/17 15:44 LDL Cholesterol Direct 76 mg/dL (75-193) 10/05/17 15:44 HDL Cholesterol 36 mg/dL (23-92) 10/05/17 15:44 TSH 3.92 uIU/ml (0.34-5.60) 10/05/17 15:44 Salicylates < 25.0 mg/L (30.0-100.0) L 10/05/17 15:44 Acetaminophen < 10.0 ug/mL (10.0-30.0) L 10/05/17 15:44 Valproic Acid 24.2 ug/mL (50.0-100.0) L 10/08/17 11:18 Ethyl Alcohol < 10 mg/dL (0-10) 10/05/17 15:44 RPR NONREACTIVE (NONREACTIVE) 10/05/17 15:44 - Physical Exam Vitals and I&O: Vital Signs Temp 97.8 F 10/17/17 06:37 Pulse 97 10/17/17 06:37 Resp 19 10/17/17 06:37 BP 113/63 10/17/17 06:37 Pulse Ox 95 10/17/17 06:37 Intake & Output 10/16/17 10/17/17 10/17/17 18:59 06:59 18:59 Intake Total 500 480 Balance 500 480 Intake: Oral 500 480 Other: # Voids 3 1 # Bowel Movements 0 1 Active Medications: Current Medications Calcium/Vitamin D (Oscal W/Vitamin D) 2 tab PO BID [facility] Stop: 12/05/17 08:59 Last Admin: 10/17/17 08:10 Dose: 2 tab Divalproex Sodium (Depakote Dr) 500 mg PO BID [facility] Stop: 12/12/17 06:03 Last Admin: 10/17/17 08:10 Dose: 500 mg Docusate Sodium (Colace) 250 mg PO DAILY [facility] Stop: 12/05/17 08:59 Last Admin: 10/17/17 08:10 Dose: 250 mg Ferrous Sulfate (Iron) 325 mg PO BID [facility] Stop: 12/05/17 08:59 Last Admin: 10/17/17 08:18 Dose: 325 mg Ibuprofen (Motrin) 400 mg PO Q8H PRN PRN Reason: Pain (Moderate) Stop: 12/08/17 09:52 Last Admin: 10/11/17 20:18 Dose: 400 mg Levothyroxine Sodium (Synthroid) 0.088 mg PO QDAC [facility] Stop: 12/05/17 07:29 Lorazepam (Ativan) 0.5 mg PO Q6HR PRN; Protocol PRN Reason: Agitation Stop: 12/05/17 14:53 Last Admin: 10/17/17 08:11 Dose: 0.5 mg Metformin HCl (Glucophage) 1,000 mg PO BID [facility] Stop: 12/05/17 08:59 Last Admin: 04/15/18 08:10 Dose: 1,000 mg Pioglitazone HCl (Actos) 45 mg PO DAILY [facility] Stop: 12/05/17 08:59 Last Admin: 10/17/17 08:09 Dose: 45 mg Quetiapine Fumarate (Seroquel) 300 mg PO BID [facility] Stop: 12/05/17 16:59 Last Admin: 10/17/17 08:10 Dose: 300 mg Assessment/Plan - Assessment Assessment: psychosis bipolar disorder medical clearance - Plan Plan: as per ordersheet Nutritional Asmnt/Malnutr-PDOC - Dietary Evaluation Malnutrition Findings (Please click <Entered> for more info): Nutritional Asmnt/Malnutrition Start: 10/09/17 13: 40 Text: Status: Complete Freq: Document 10/09/17 13:40 ALICIA (Rec: 10/09/17 13:57 LCDEB [email or web address] [id number]) Nutritional Asmnt/Malnutrition Patient General Information Nutritional Screening Moderate Risk Diagnosis psychosis Pertinent Medical Hx/Surgical Hx HTN, DM, anemia, constipation, hypothyroidism Subjective Information Pt seen sitting up in bed taking soup, Romansh speaking. 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 Current Diet Order/ Nutrition Support CCHO-60gm, low fat, low cholesterol, small portion Pertinent Medications oscal w/vit D, colace, Iron, synthroid, gluophage, seroquel Pertinent Labs 10/05 Na 135, BUN 27, glucose 122, A1c 7.3, alb 3.6 10/06-10/07 POC 89-126 Nutritional Hx/Data Height 1.57 m Height (Calculated Centimeters) 157.5 Current Weight (lbs) 79.379 kg Weight (Calculated Kilograms) 79.4 Weight (Calculated Grams) 31983.7 [place] Body Weight 110 Body Mass Index (BMI) 32.0 Weight Status Obese GI Symptoms GI Symptoms None Last BM 4/6 Difficult in: None Skin Integrity/Comment: intact 1+pitting edema to left and right arms marlena score 21 Current %PO Good (75-100%) Estimated Nutritional Goals BEE in Kcals: Adj wt of IBW Calories/Kcals/Kg 25-30 Kcals Calculated 2295-7124 Protein: Adj wt of IBW Protein g/k-1.2 Protein Calculated 57-68 Fluid: ml 1425-1710ml (1ml/kcal) Nutritional Problem 1. Problem Problem altered nutrition related lab values Etiology hx of DM Signs/Symptoms: glucose 122, A1c 7.3, POC 89- 126 Malnutrition Alert Protein-Calorie Malnutrition N/A Is there a minimum of two criteria No selected? Query Text:Check all the applicable criteria. A minimum of two criteria are recommended for diagnosis of either severe or non-severe malnutrition. Intervention/Recommendation Comments 1. Continue with current diet as ordered. 2. Monitor PO intake, wt, labs and skin integrity 3. F/U as moderate risk in 3-5 days, 10/12-10/14 Expected Outcomes/Goals Expected Outcomes/Goals 1. PO intake to meet at least 75% of nutritional needs. 2. Wt stability, skin to remain intact, labs to approach WNL.
--- NOTE | 2017-10-18 02:05 | Progress Notes ---
DATE: 10/17/2017 Case discussed with staff of the patient, reviewed records. The patient continues to isolate herself. Continues to be unpredictable, impulsive, needing redirection. Continues to have poor insight. Unable to participate in a meaningful conversation, unpredictable and impulsive. No side effects with the medication, no sedation, no nausea and no extrapyramidal symptoms. We will continue with the patient in group therapy, milieu therapy, and adjust medications as needed. JOB# [id number]
[2017-10-18] MEDS: Calcium Carb/Vit D 500 mg/200 U Tab PO SCH ×2 (08:34→16:28)
[2017-10-18] MEDS: Ferrous Sulfate 325 MG TAB PO SCH ×2 (08:34→16:28)
--- NOTE | 2017-10-18 20:30 | Internal Medicine Prog Note ---
Internal Medicine Subjective - Subjective Patient is:: awake, verbal, confused Per staff patient has:: tolerating meds Internal Medicine Objective - Results Result Diagrams: 10/05/17 15:44 10/05/17 15:44 Recent Labs: Laboratory Last Values WBC 5.5 Th/cmm (4.8-10.8) 10/05/17 15:44 RBC 3.46 Mil/cmm (3.80-5.10) L 10/05/17 15:44 Hgb 10.2 gm/dL (12-16) L 10/05/17 15:44 Hct 30.7 % (41.0-60) L 10/05/17 15:44 MCV 88.7 fl (81-100) 10/05/17 15:44 MCH 29.5 pg (27.0-31.0) 10/05/17 15:44 MCHC Differential 33.2 pg (28.0-36.0) 10/05/17 15:44 RDW 13.8 % (11.5-20.0) 10/05/17 15:44 Plt Count 225 Th/cmm (150-400) 10/05/17 15:44 MPV 9.2 fl 10/05/17 15:44 Neutrophils % 65.6 % (40.0-80.0) 10/05/17 15:44 Lymphocytes % 25.0 % (20.0-50.0) 10/05/17 15:44 Monocytes % 6.2 % (2.0-10.0) 10/05/17 15:44 Eosinophils % 2.7 % (0.0-5.0) 10/05/17 15:44 Basophils % 0.5 % (0.0-2.0) 10/05/17 15:44 Sodium 135 mEq/L (136-145) L 10/05/17 15:44 Potassium 4.1 mEq/L (3.5-5.1) 10/05/17 15:44 Chloride 102 mEq/L (98-107) 10/05/17 15:44 Carbon Dioxide 26.1 mEq/L (21.0-31.0) 10/05/17 15:44 Anion Gap 11.0 (7.0-16.0) 10/05/17 15:44 BUN 27 mg/dL (7-25) H 10/05/17 15:44 Creatinine 1.1 mg/dL (0.6-1.2) 10/05/17 15:44 Est GFR ( Amer) > 60.0 ml/min (>90) 10/05/17 15:44 Est GFR (Non-Af Amer) 53.1 ml/min 10/05/17 15:44 BUN/Creatinine Ratio 24.5 10/05/17 15:44 Glucose 122 mg/dL (70-105) H 10/05/17 15:44 POC Glucose 168 MG/DL (70 - 105) H 10/18/17 16:18 Hemoglobin A1c % 7.3 % (4.0-6.0) H 10/05/17 15:44 Calcium 8.9 mg/dL (8.6-10.3) 10/05/17 15:44 Total Bilirubin 0.2 mg/dL (0.3-1.0) L 10/05/17 15:44 AST 20 U/L (13-39) 10/05/17 15:44 ALT 21 U/L (7-52) 10/05/17 15:44 Alkaline Phosphatase 103 U/L (34-104) 10/05/17 15:44 Total Protein 6.6 gm/dL (6.0-8.3) 10/05/17 15:44 Albumin 3.6 gm/dL (3.7-5.3) L 10/05/17 15:44 Globulin 3.0 gm/dL 10/05/17 15:44 Albumin/Globulin Ratio 1.2 (1.0-1.8) 10/05/17 15:44 Triglycerides 337 mg/dL (<150) H 10/05/17 15:44 Cholesterol 160 mg/dL (<200) 10/05/17 15:44 LDL Cholesterol Direct 76 mg/dL (75-193) 10/05/17 15:44 HDL Cholesterol 36 mg/dL (23-92) 10/05/17 15:44 TSH 3.92 uIU/ml (0.34-5.60) 10/05/17 15:44 Salicylates < 25.0 mg/L (30.0-100.0) L 10/05/17 15:44 Acetaminophen < 10.0 ug/mL (10.0-30.0) L 10/05/17 15:44 Valproic Acid 66.3 ug/mL (50.0-100.0) 10/18/17 06:40 Ethyl Alcohol < 10 mg/dL (0-10) 10/05/17 15:44 RPR NONREACTIVE (NONREACTIVE) 10/05/17 15:44 - Physical Exam Vitals and I&O: Vital Signs Temp 97.6 F 10/18/17 20:19 Pulse 98 10/18/17 20:19 Resp 20 10/18/17 20:19 BP 146/70 10/18/17 20:19 Pulse Ox 97 10/18/17 20:19 Intake & Output 10/18/17 10/18/17 10/19/17 06:59 18:59 06:59 Intake Total 240 1800 240 Balance 240 1800 240 Weight (lbs) 79.379 kg Intake: Oral 240 1800 240 Other: # Voids 3 3 1 # Bowel Movements 0 1 Weight Source Bedscale Active Medications: Current Medications Calcium/Vitamin D (Oscal W/Vitamin D) 2 tab PO BID [facility] Stop: 12/05/17 08:59 Last Admin: 10/18/17 16:28 Dose: 2 tab Divalproex Sodium (Depakote Dr) 500 mg PO BID [facility] Stop: 12/12/17 06:03 Last Admin: 10/18/17 16:27 Dose: 500 mg Docusate Sodium (Colace) 250 mg PO DAILY [facility] Stop: 12/05/17 08:59 Last Admin: 10/18/17 08:34 Dose: 250 mg Ferrous Sulfate (Iron) 325 mg PO BID [facility] Stop: 12/05/17 08:59 Last Admin: 10/18/17 16:28 Dose: 325 mg Ibuprofen (Motrin) 400 mg PO Q8H PRN PRN Reason: Pain (Moderate) Stop: 12/08/17 09:52 Last Admin: 10/11/17 20:18 Dose: 400 mg Levothyroxine Sodium (Synthroid) 0.088 mg PO QDAC [facility] Stop: 12/05/17 07:29 Lorazepam (Ativan) 0.5 mg PO Q6HR PRN; Protocol PRN Reason: Agitation Stop: 12/05/17 14:53 Last Admin: 10/18/17 08:34 Dose: 0.5 mg Metformin HCl (Glucophage) 1,000 mg PO BID [facility] Stop: 12/05/17 08:59 Last Admin: 10/18/17 16:28 Dose: 1,000 mg Pioglitazone HCl (Actos) 45 mg PO DAILY [facility] Stop: 12/05/17 08:59 Last Admin: 10/18/17 08:33 Dose: 45 mg Quetiapine Fumarate (Seroquel) 300 mg PO BID [facility] Stop: 12/05/17 16:59 Last Admin: 10/18/17 16:28 Dose: 300 mg General: alert HEENT: NC/AT, PERRLA Neck: Supple Lungs: CTAB Cardiovascular: RRR, Normal S1, Normal S2, without murmur Abdomen: soft, non-tender, non-distended, positive bowel sound Neurological: alert Internal Medicine Assmt/Plan - Assessment Assessment: psychosis bipolar disorder medical clearance - Plan Plan: as per ordersheet Nutritional Asmnt/Malnutr-PDOC - Dietary Evaluation Malnutrition Findings (Please click <Entered> for more info): Nutritional Asmnt/Malnutrition Start: 10/09/17 13: 40 Text: Status: Complete Freq: Document 10/09/17 13:40 HEN (Rec: 10/09/17 13:57 LCHENG FRANCISCO [email or web address]) Nutritional Asmnt/Malnutrition Patient General Information Nutritional Screening Moderate Risk Diagnosis psychosis Pertinent Medical Hx/Surgical Hx HTN, DM, anemia, constipation, hypothyroidism Subjective Information Pt seen sitting up in bed taking soup, [place]er speaking. 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 Current Diet Order/ Nutrition Support CCHO-60gm, low fat, low cholesterol, small portion Pertinent Medications oscal w/vit D, colace, Iron, synthroid, gluophage, seroquel Pertinent Labs 10/05 Na 135, BUN 27, glucose 122, A1c 7.3, alb 3.6 10/06-4 POC 89-126 Nutritional Hx/Data Height 1.57 m Height (Calculated Centimeters) 157.5 Current Weight (lbs) 79.379 kg Weight (Calculated Kilograms) 79.4 Weight (Calculated Grams) 24227.7 [place] Body Weight 110 Body Mass Index (BMI) 32.0 Weight Status Obese GI Symptoms GI Symptoms None Last BM 4/6 Difficult in: None Skin Integrity/Comment: intact 1+pitting edema to left and right arms marlena score 21 Current %PO Good (75-100%) Estimated Nutritional Goals BEE in Kcals: Adj wt of IBW Calories/Kcals/Kg 25-30 Kcals Calculated 1461-6635 Protein: Adj wt of IBW Protein g/k-1.2 Protein Calculated 57-68 Fluid: ml 1425-1710ml (1ml/kcal) Nutritional Problem 1. Problem Problem altered nutrition related lab values Etiology hx of DM Signs/Symptoms: glucose 122, A1c 7.3, POC 89- 126 Malnutrition Alert Protein-Calorie Malnutrition N/A Is there a minimum of two criteria No selected? Query Text:Check all the applicable criteria. A minimum of two criteria are recommended for diagnosis of either severe or non-severe malnutrition. Intervention/Recommendation Comments 1. Continue with current diet as ordered. 2. Monitor PO intake, wt, labs and skin integrity 3. F/U as moderate risk in 3-5 days, 10/12-10/14 Expected Outcomes/Goals Expected Outcomes/Goals 1. PO intake to meet at least 75% of nutritional needs. 2. Wt stability, skin to remain intact, labs to approach WNL.
--- NOTE | 2017-10-19 00:02 | Progress Notes ---
DATE: 10/18/2017 Case was discussed with staff of the patient, reviewed records. The patient continues to be unpredictable, impulsive, needing redirection, continues to have poor insight, rambling speech. Very hard to understand, but she is not in her bed. She is in the dining room, cannot socialize very well because of her impeded speech. No side effects with the medication, no sedation, no nausea, no extrapyramidal symptoms. Unpredictable, impulsive and we will continue outpatient group therapy, milieu therapy, and adjust medications as needed. JOB# [id number]
[2017-10-19] MEDS: Calcium Carb/Vit D 500 mg/200 U Tab PO SCH ×2 (10:03→16:54)
[2017-10-19] MEDS: Ferrous Sulfate 325 MG TAB PO SCH ×2 (10:04→16:54)
--- NOTE | 2017-10-19 18:09 | Progress Notes ---
DATE: 10/19/2017 SUBJECTIVE: Case discussed with staff of the patient, reviewed records. The patient continues to be internally preoccupied, unpredictable, impulsive, paranoid at times, sleeping better, eating better, tends isolate herself with impaired speech. She is compliant with medication. No side effects. No sedation, nausea, or extrapyramidal symptoms. We will continue the patient in group therapy, milieu therapy, and adjust the medication as needed. [facility]# [id number]
--- NOTE | 2017-10-19 20:12 | General Progress Note ---
Subjective - Review of Systems Service Date: 10/19/17 Subjective: awake, agitated nad Objective - Results Result Diagrams: 10/05/17 15:44 10/05/17 15:44 Recent Labs: Laboratory Last Values WBC 5.5 Th/cmm (4.8-10.8) 10/05/17 15:44 RBC 3.46 Mil/cmm (3.80-5.10) L 10/05/17 15:44 Hgb 10.2 gm/dL (12-16) L 10/05/17 15:44 Hct 30.7 % (41.0-60) L 10/05/17 15:44 MCV 88.7 fl (81-100) 10/05/17 15:44 MCH 29.5 pg (27.0-31.0) 10/05/17 15:44 MCHC Differential 33.2 pg (28.0-36.0) 10/05/17 15:44 RDW 13.8 % (11.5-20.0) 10/05/17 15:44 Plt Count 225 Th/cmm (150-400) 10/05/17 15:44 MPV 9.2 fl 10/05/17 15:44 Neutrophils % 65.6 % (40.0-80.0) 10/05/17 15:44 Lymphocytes % 25.0 % (20.0-50.0) 10/05/17 15:44 Monocytes % 6.2 % (2.0-10.0) 10/05/17 15:44 Eosinophils % 2.7 % (0.0-5.0) 10/05/17 15:44 Basophils % 0.5 % (0.0-2.0) 10/05/17 15:44 Sodium 135 mEq/L (136-145) L 10/05/17 15:44 Potassium 4.1 mEq/L (3.5-5.1) 10/05/17 15:44 Chloride 102 mEq/L (98-107) 10/05/17 15:44 Carbon Dioxide 26.1 mEq/L (21.0-31.0) 10/05/17 15:44 Anion Gap 11.0 (7.0-16.0) 10/05/17 15:44 BUN 27 mg/dL (7-25) H 10/05/17 15:44 Creatinine 1.1 mg/dL (0.6-1.2) 10/05/17 15:44 Est GFR ( Amer) > 60.0 ml/min (>90) 10/05/17 15:44 Est GFR (Non-Af Amer) 53.1 ml/min 10/05/17 15:44 BUN/Creatinine Ratio 24.5 10/05/17 15:44 Glucose 122 mg/dL (70-105) H 10/05/17 15:44 POC Glucose 187 MG/DL (70 - 105) H 10/19/17 11:26 Hemoglobin A1c % 7.3 % (4.0-6.0) H 10/05/17 15:44 Calcium 8.9 mg/dL (8.6-10.3) 10/05/17 15:44 Total Bilirubin 0.2 mg/dL (0.3-1.0) L 10/05/17 15:44 AST 20 U/L (13-39) 10/05/17 15:44 ALT 21 U/L (7-52) 10/05/17 15:44 Alkaline Phosphatase 103 U/L (34-104) 10/05/17 15:44 Total Protein 6.6 gm/dL (6.0-8.3) 10/05/17 15:44 Albumin 3.6 gm/dL (3.7-5.3) L 10/05/17 15:44 Globulin 3.0 gm/dL 10/05/17 15:44 Albumin/Globulin Ratio 1.2 (1.0-1.8) 10/05/17 15:44 Triglycerides 337 mg/dL (<150) H 10/05/17 15:44 Cholesterol 160 mg/dL (<200) 10/05/17 15:44 LDL Cholesterol Direct 76 mg/dL (75-193) 10/05/17 15:44 HDL Cholesterol 36 mg/dL (23-92) 10/05/17 15:44 TSH 3.92 uIU/ml (0.34-5.60) 10/05/17 15:44 Salicylates < 25.0 mg/L (30.0-100.0) L 10/05/17 15:44 Acetaminophen < 10.0 ug/mL (10.0-30.0) L 04/03/18 15:44 Valproic Acid 66.3 ug/mL (50.0-100.0) 10/18/17 06:40 Ethyl Alcohol < 10 mg/dL (0-10) 10/05/17 15:44 RPR NONREACTIVE (NONREACTIVE) 10/05/17 15:44 - Physical Exam Vitals and I&O: Vital Signs Temp 98.5 F 10/19/17 15:37 Pulse 109 10/19/17 15:37 Resp 18 10/19/17 15:37 BP 177/56 10/19/17 15:37 Pulse Ox 98 10/19/17 15:37 Intake & Output 10/19/17 10/19/17 10/20/17 06:59 18:59 06:59 Intake Total 360 750 Balance 360 750 Intake: Oral 360 750 Other: # Voids 2 2 # Bowel Movements 1 Active Medications: Current Medications Calcium/Vitamin D (Oscal W/Vitamin D) 2 tab PO BID [facility] Stop: 12/05/17 08:59 Last Admin: 10/19/17 16:54 Dose: 2 tab Divalproex Sodium (Depakote Dr) 500 mg PO BID [facility] Stop: 12/12/17 06:03 Last Admin: 10/19/17 16:54 Dose: 500 mg Docusate Sodium (Colace) 250 mg PO DAILY [facility] Stop: 12/05/17 08:59 Last Admin: 10/19/17 10:03 Dose: 250 mg Ferrous Sulfate (Iron) 325 mg PO BID [facility] Stop: 12/05/17 08:59 Last Admin: 10/19/17 16:54 Dose: 325 mg Ibuprofen (Motrin) 400 mg PO Q8H PRN PRN Reason: Pain (Moderate) Stop: 12/08/17 09:52 Last Admin: 10/11/17 20:18 Dose: 400 mg Levothyroxine Sodium (Synthroid) 0.088 mg PO QDAC [facility] Stop: 12/05/17 07:29 Lorazepam (Ativan) 0.5 mg PO Q6HR PRN; Protocol PRN Reason: Agitation Stop: 12/05/17 14:53 Last Admin: 10/18/17 08:34 Dose: 0.5 mg Metformin HCl (Glucophage) 1,000 mg PO BID [facility] Stop: 12/05/17 08:59 Last Admin: 04/17/18 16:54 Dose: 1,000 mg Pioglitazone HCl (Actos) 45 mg PO DAILY [facility] Stop: 12/05/17 08:59 Last Admin: 10/19/17 10:03 Dose: 45 mg Quetiapine Fumarate (Seroquel) 300 mg PO BID [facility] Stop: 12/05/17 16:59 Last Admin: 10/19/17 16:54 Dose: 300 mg General: Alert, No acute distress HEENT: Atraumatic Neck: Supple Cardiovascular: Regular rate Abdomen: Bowel sounds, Soft Assessment/Plan - Assessment Assessment: psychosis bipolar disorder medical clearance - Plan Plan: as per ordersheet Nutritional Asmnt/Malnutr-PDOC - Dietary Evaluation Malnutrition Findings (Please click <Entered> for more info): Nutritional Asmnt/Malnutrition Start: 10/09/17 13: 40 Text: Status: Complete Freq: Document 10/09/17 13:40 [facility] (Rec: 10/09/17 13:57 [email or web address] Nutritional Asmnt/Malnutrition Patient General Information Nutritional Screening Moderate Risk Diagnosis psychosis Pertinent Medical Hx/Surgical Hx HTN, DM, anemia, constipation, hypothyroidism Subjective Information Pt seen sitting up in bed taking soup, Malawian speaking. Per COILER, pt eats 100% of meals, always ask for extra food. Current Diet Order/ Nutrition Support CCHO-60gm, low fat, low cholesterol, small portion Pertinent Medications oscal w/vit D, colace, Iron, synthroid, gluophage, seroquel Pertinent Labs / Na 135, BUN 27, glucose 122, A1c 7.3, alb 3.6 4/4-4/5 POC 89-126 Nutritional Hx/Data Height 1.57 m Height (Calculated Centimeters) 157.5 Current Weight (lbs) 79.379 kg Weight (Calculated Kilograms) 79.4 Weight (Calculated Grams) [address] Body Weight 110 Body Mass Index (BMI) 32.0 Weight Status Obese GI Symptoms GI Symptoms None Last BM 4/6 Difficult in: None Skin Integrity/Comment: intact 1+pitting edema to left and right arms marlena score 21 Current %PO Good (75-100%) Estimated Nutritional Goals BEE in Kcals: Adj wt of IBW Calories/Kcals/Kg 25-30 Kcals Calculated 2553-2583 Protein: Adj wt of IBW Protein g/k-1.2 Protein Calculated 57-68 Fluid: ml 1425-1710ml (1ml/kcal) Nutritional Problem 1. Problem Problem altered nutrition related lab values Etiology hx of DM Signs/Symptoms: glucose 122, A1c 7.3, POC 89- 126 Malnutrition Alert Protein-Calorie Malnutrition N/A Is there a minimum of two criteria No selected? Query Text:Check all the applicable criteria. A minimum of two criteria are recommended for diagnosis of either severe or non-severe malnutrition. Intervention/Recommendation Comments 1. Continue with current diet as ordered. 2. Monitor PO intake, wt, labs and skin integrity 3. F/U as moderate risk in 3-5 days, 10/12-10/14 Expected Outcomes/Goals Expected Outcomes/Goals 1. PO intake to meet at least 75% of nutritional needs. 2. Wt stability, skin to remain intact, labs to approach WNL.
[2017-10-20] MEDS: Calcium Carb/Vit D 500 mg/200 U Tab PO SCH ×2 (08:31→17:52)
[2017-10-20] MEDS: Ferrous Sulfate 325 MG TAB PO SCH ×2 (08:31→17:52)
--- NOTE | 2017-10-20 14:10 | General Progress Note ---
Subjective - Review of Systems Events since last encounter: patient aguitated awake alert Subjective: awake, agitated nad Objective - Results Result Diagrams: 10/05/17 15:44 10/05/17 15:44 Recent Labs: Laboratory Last Values WBC 5.5 Th/cmm (4.8-10.8) 10/05/17 15:44 RBC 3.46 Mil/cmm (3.80-5.10) L 10/05/17 15:44 Hgb 10.2 gm/dL (12-16) L 10/05/17 15:44 Hct 30.7 % (41.0-60) L 10/05/17 15:44 MCV 88.7 fl (81-100) 10/05/17 15:44 MCH 29.5 pg (27.0-31.0) 10/05/17 15:44 MCHC Differential 33.2 pg (28.0-36.0) 10/05/17 15:44 RDW 13.8 % (11.5-20.0) 10/05/17 15:44 Plt Count 225 Th/cmm (150-400) 10/05/17 15:44 MPV 9.2 fl 10/05/17 15:44 Neutrophils % 65.6 % (40.0-80.0) 10/05/17 15:44 Lymphocytes % 25.0 % (20.0-50.0) 10/05/17 15:44 Monocytes % 6.2 % (2.0-10.0) 10/05/17 15:44 Eosinophils % 2.7 % (0.0-5.0) 10/05/17 15:44 Basophils % 0.5 % (0.0-2.0) 10/05/17 15:44 Sodium 135 mEq/L (136-145) L 10/05/17 15:44 Potassium 4.1 mEq/L (3.5-5.1) 10/05/17 15:44 Chloride 102 mEq/L (98-107) 10/05/17 15:44 Carbon Dioxide 26.1 mEq/L (21.0-31.0) 10/05/17 15:44 Anion Gap 11.0 (7.0-16.0) 10/05/17 15:44 BUN 27 mg/dL (7-25) H 10/05/17 15:44 Creatinine 1.1 mg/dL (0.6-1.2) 10/05/17 15:44 Est GFR ( Amer) > 60.0 ml/min (>90) 10/05/17 15:44 Est GFR (Non-Af Amer) 53.1 ml/min 10/05/17 15:44 BUN/Creatinine Ratio 24.5 10/05/17 15:44 Glucose 122 mg/dL (70-105) H 10/05/17 15:44 POC Glucose 187 MG/DL (70 - 105) H 10/19/17 11:26 Hemoglobin A1c % 7.3 % (4.0-6.0) H 10/05/17 15:44 Calcium 8.9 mg/dL (8.6-10.3) 10/05/17 15:44 Total Bilirubin 0.2 mg/dL (0.3-1.0) L 10/05/17 15:44 AST 20 U/L (13-39) 10/05/17 15:44 ALT 21 U/L (7-52) 10/05/17 15:44 Alkaline Phosphatase 103 U/L (34-104) 10/05/17 15:44 Total Protein 6.6 gm/dL (6.0-8.3) 10/05/17 15:44 Albumin 3.6 gm/dL (3.7-5.3) L 10/05/17 15:44 Globulin 3.0 gm/dL 10/05/17 15:44 Albumin/Globulin Ratio 1.2 (1.0-1.8) 10/05/17 15:44 Triglycerides 337 mg/dL (<150) H 10/05/17 15:44 Cholesterol 160 mg/dL (<200) 10/05/17 15:44 LDL Cholesterol Direct 76 mg/dL (75-193) 10/05/17 15:44 HDL Cholesterol 36 mg/dL (23-92) 10/05/17 15:44 TSH 3.92 uIU/ml (0.34-5.60) 10/05/17 15:44 Salicylates < 25.0 mg/L (30.0-100.0) L 10/05/17 15:44 Acetaminophen < 10.0 ug/mL (10.0-30.0) L 10/05/17 15:44 Valproic Acid 66.3 ug/mL (50.0-100.0) 10/18/17 06:40 Ethyl Alcohol < 10 mg/dL (0-10) 10/05/17 15:44 RPR NONREACTIVE (NONREACTIVE) 10/05/17 15:44 - Physical Exam Vitals and I&O: Vital Signs Temp 97.9 F 10/19/17 20:00 Pulse 87 10/19/17 20:00 Resp 19 10/19/17 20:00 BP 123/52 10/19/17 20:00 Pulse Ox 96 10/19/17 20:00 Intake & Output 10/19/17 10/20/17 10/20/17 18:59 06:59 18:59 Intake Total 750 120 Balance 750 120 Intake: Oral 750 120 Other: # Voids 2 3 Active Medications: Current Medications Calcium/Vitamin D (Oscal W/Vitamin D) 2 tab PO BID [facility] Stop: 12/05/17 08:59 Last Admin: 10/20/17 08:31 Dose: 2 tab Clonazepam (Klonopin) 0.5 mg PO BID [facility] PRN Reason: Protocol Stop: 12/19/17 08:59 Last Admin: 10/20/17 08:50 Dose: Not Given Divalproex Sodium (Depakote Dr) 500 mg PO BID [facility] Stop: 12/12/17 06:03 Last Admin: 10/20/17 08:31 Dose: 500 mg Docusate Sodium (Colace) 250 mg PO DAILY [facility] Stop: 12/05/17 08:59 Last Admin: 10/20/17 08:31 Dose: 250 mg Ferrous Sulfate (Iron) 325 mg PO BID [facility] Stop: 12/05/17 08:59 Last Admin: 10/20/17 08:31 Dose: 325 mg Ibuprofen (Motrin) 400 mg PO Q8H PRN PRN Reason: Pain (Moderate) Stop: 12/08/17 09:52 Last Admin: 10/11/17 20:18 Dose: 400 mg Levothyroxine Sodium (Synthroid) 0.088 mg PO QDAC [facility] Stop: 12/05/17 07:29 Lorazepam (Ativan) 0.5 mg PO Q6HR PRN; Protocol PRN Reason: Agitation Stop: 12/05/17 14:53 Last Admin: 10/18/17 08:34 Dose: 0.5 mg Metformin HCl (Glucophage) 1,000 mg PO BID [facility] Stop: 12/05/17 08:59 Last Admin: 10/20/17 08:30 Dose: 1,000 mg Pioglitazone HCl (Actos) 45 mg PO DAILY [facility] Stop: 12/05/17 08:59 Last Admin: 10/20/17 08:29 Dose: 45 mg Quetiapine Fumarate (Seroquel) 300 mg PO BID [facility] Stop: 12/05/17 16:59 Last Admin: 10/20/17 08:32 Dose: 300 mg General: Alert, No acute distress HEENT: Atraumatic Neck: Supple Cardiovascular: Regular rate Abdomen: Bowel sounds, Soft Assessment/Plan - Assessment Assessment: psychosis bipolar disorder medical clearance - Plan Plan: as per ordersheet Nutritional Asmnt/Malnutr-PDOC - Dietary Evaluation Malnutrition Findings (Please click <Entered> for more info): Nutritional Asmnt/Malnutrition Start: 10/09/17 13: 40 Text: Status: Complete Freq: Document 10/09/17 13:40 JASMIN (Rec: 10/09/17 13:57 [email or web address]) Nutritional Asmnt/Malnutrition Patient General Information Nutritional Screening Moderate Risk Diagnosis psychosis Pertinent Medical Hx/Surgical Hx HTN, DM, anemia, constipation, hypothyroidism Subjective Information Pt seen sitting up in bed taking soup, Syriac speaking. Per OPERATOR LIGHTS, pt eats 100% of meals, always ask for extra food. Current Diet Order/ Nutrition Support CCHO-60gm, low fat, low cholesterol, small portion Pertinent Medications oscal w/vit D, colace, Iron, synthroid, gluophage, seroquel Pertinent Labs 10/05 Na 135, BUN 27, glucose 122, A1c 7.3, alb 3.6 10/06-10/07 POC 89-126 Nutritional Hx/Data Height 1.57 m Height (Calculated Centimeters) 157.5 Current Weight (lbs) 79.379 kg Weight (Calculated Kilograms) 79.4 Weight (Calculated Grams) [address]356.7 [place] Body Weight 110 Body Mass Index (BMI) 32.0 Weight Status Obese GI Symptoms GI Symptoms None Last BM 4/6 Difficult in: None Skin Integrity/Comment: intact 1+pitting edema to left and right arms marlena score 21 Current %PO Good (75-100%) Estimated Nutritional Goals BEE in Kcals: Adj wt of IBW Calories/Kcals/Kg 25-30 Kcals Calculated 7765-5965 Protein: Adj wt of IBW Protein g/k-1.2 Protein Calculated 57-68 Fluid: ml 1425-1710ml (1ml/kcal) Nutritional Problem 1. Problem Problem altered nutrition related lab values Etiology hx of DM Signs/Symptoms: glucose 122, A1c 7.3, POC 89- 126 Malnutrition Alert Protein-Calorie Malnutrition N/A Is there a minimum of two criteria No selected? Query Text:Check all the applicable criteria. A minimum of two criteria are recommended for diagnosis of either severe or non-severe malnutrition. Intervention/Recommendation Comments 1. Continue with current diet as ordered. 2. Monitor PO intake, wt, labs and skin integrity 3. F/U as moderate risk in 3-5 days, 10/12-10/14 Expected Outcomes/Goals Expected Outcomes/Goals 1. PO intake to meet at least 75% of nutritional needs. 2. Wt stability, skin to remain intact, labs to approach WNL.
--- NOTE | 2017-10-21 00:41 | Progress Notes ---
DATE: 10/15/2017 SUBJECTIVE: Chart reviewed and the patient interviewed. Also, discussed the patient's condition with the staff and reviewed records and labs. The patient is still extremely agitated. The patient has been spitting at staff and cursing them while helping her with her ADLs. She also is still resisting care and taking her clothes off. She also is still refusing to take her medications and also has been playing with her feces after taking off her diapers and her room is a mess and painted the bed with her feces. Otherwise, the patient is cooperative as far as directions from staff. ASSESSMENT: The patient is still psychotic and agitated. TREATMENT PLAN: We will continue to monitor her behavior and her condition closely. Also, we will continue Seroquel and Depakote, but we will add Klonopin in a dose of 0.5 mg twice a day and we will continue to follow up closely. JOB# [id number]
--- NOTE | 2017-10-21 01:56 | Progress Notes ---
DATE: SUBJECTIVE: Chart reviewed and the patient interviewed. Also discussed the patient's condition with staff and reviewed the records and labs. The patient is still extremely irritable and agitated, especially when staff tries to help her with ADLs. She also is still unable to carry on any coherent conversation and she gets easily agitated and easily irritable. She also still has episodes of outbursts. Also, has been yelling and screaming. She also still unable to answer questions coherently. Unable to carry on any coherent conversation. When I tried to talk to the patient, the patient became angry and in irritable mood and did not answer any of my questions coherently. ASSESSMENT: The patient is still agitated and psychotic. TREATMENT PLAN: The patient continued to take Depakote and Depakote blood level that was done on 10/18/2017 came back to be 66.3. We will continue to work on her poor impulse control. Also, continue adjusting psychotropic medications and we will continue to follow up closely. [facility]# [id number]
--- NOTE | 2017-10-21 02:04 | Progress Notes ---
DATE: 10/14/2017 SUBJECTIVE: Chart reviewed and the patient interviewed. Also discussed the patient's condition with the staff and reviewed records and labs. The patient is still confused and she did not want to answer any of my questions and she kept scratching her hands. The patient also has not been able to sleep good at night and she has not been answering most of my questions because of her confusion and agitation. The patient also is still acting bizarre. She also is compatible with the staff, especially when helping her with ADLs. Also her thought processes are disorganized. ASSESSMENT: The patient is still psychotic and agitated. TREATMENT PLAN: We will continue monitoring her behavior closely. Depakote blood level that was done on 10/08/2017, came back to be 24.2, which is below therapeutic level. We will increase Depakote to 500 mg twice a day and we will continue to work on poor impulse control and ineffective coping. JOB# [id number]
[2017-10-21] MEDS: Ferrous Sulfate 325 MG TAB PO SCH ×2 (09:28→16:35)
[2017-10-21] MEDS: Calcium Carb/Vit D 500 mg/200 U Tab PO SCH ×2 (09:28→16:35)
--- NOTE | 2017-10-21 09:43 | General Progress Note ---
Subjective - Review of Systems Events since last encounter: patient still aguitated confused anxious Subjective: awake, agitated nad Objective - Results Result Diagrams: 10/05/17 15:44 10/05/17 15:44 Recent Labs: Laboratory Last Values WBC 5.5 Th/cmm (4.8-10.8) 10/05/17 15:44 RBC 3.46 Mil/cmm (3.80-5.10) L 10/05/17 15:44 Hgb 10.2 gm/dL (12-16) L 10/05/17 15:44 Hct 30.7 % (41.0-60) L 10/05/17 15:44 MCV 88.7 fl (81-100) 10/05/17 15:44 MCH 29.5 pg (27.0-31.0) 10/05/17 15:44 MCHC Differential 33.2 pg (28.0-36.0) 10/05/17 15:44 RDW 13.8 % (11.5-20.0) 10/05/17 15:44 Plt Count 225 Th/cmm (150-400) 10/05/17 15:44 MPV 9.2 fl 10/05/17 15:44 Neutrophils % 65.6 % (40.0-80.0) 10/05/17 15:44 Lymphocytes % 25.0 % (20.0-50.0) 10/05/17 15:44 Monocytes % 6.2 % (2.0-10.0) 10/05/17 15:44 Eosinophils % 2.7 % (0.0-5.0) 10/05/17 15:44 Basophils % 0.5 % (0.0-2.0) 10/05/17 15:44 Sodium 135 mEq/L (136-145) L 10/05/17 15:44 Potassium 4.1 mEq/L (3.5-5.1) 10/05/17 15:44 Chloride 102 mEq/L (98-107) 10/05/17 15:44 Carbon Dioxide 26.1 mEq/L (21.0-31.0) 10/05/17 15:44 Anion Gap 11.0 (7.0-16.0) 10/05/17 15:44 BUN 27 mg/dL (7-25) H 10/05/17 15:44 Creatinine 1.1 mg/dL (0.6-1.2) 10/05/17 15:44 Est GFR ( Amer) > 60.0 ml/min (>90) 10/05/17 15:44 Est GFR (Non-Af Amer) 53.1 ml/min 10/05/17 15:44 BUN/Creatinine Ratio 24.5 10/05/17 15:44 Glucose 122 mg/dL (70-105) H 10/05/17 15:44 POC Glucose 187 MG/DL (70 - 105) H 10/19/17 11:26 Hemoglobin A1c % 7.3 % (4.0-6.0) H 10/05/17 15:44 Calcium 8.9 mg/dL (8.6-10.3) 10/05/17 15:44 Total Bilirubin 0.2 mg/dL (0.3-1.0) L 10/05/17 15:44 AST 20 U/L (13-39) 10/05/17 15:44 ALT 21 U/L (7-52) 10/05/17 15:44 Alkaline Phosphatase 103 U/L (34-104) 10/05/17 15:44 Total Protein 6.6 gm/dL (6.0-8.3) 10/05/17 15:44 Albumin 3.6 gm/dL (3.7-5.3) L 10/05/17 15:44 Globulin 3.0 gm/dL 10/05/17 15:44 Albumin/Globulin Ratio 1.2 (1.0-1.8) 10/05/17 15:44 Triglycerides 337 mg/dL (<150) H 10/05/17 15:44 Cholesterol 160 mg/dL (<200) 10/05/17 15:44 LDL Cholesterol Direct 76 mg/dL (75-193) 10/05/17 15:44 HDL Cholesterol 36 mg/dL (23-92) 10/05/17 15:44 TSH 3.92 uIU/ml (0.34-5.60) 10/05/17 15:44 Salicylates < 25.0 mg/L (30.0-100.0) L 10/05/17 15:44 Acetaminophen < 10.0 ug/mL (10.0-30.0) L 10/05/17 15:44 Valproic Acid 66.3 ug/mL (50.0-100.0) 10/18/17 06:40 Ethyl Alcohol < 10 mg/dL (0-10) 10/05/17 15:44 RPR NONREACTIVE (NONREACTIVE) 10/05/17 15:44 - Physical Exam Vitals and I&O: Vital Signs Temp 97.7 F 10/20/17 15:23 Pulse 91 10/20/17 15:23 Resp 20 10/20/17 15:23 BP 139/62 10/20/17 15:23 Pulse Ox 96 10/20/17 15:23 Intake & Output 10/20/17 10/21/17 10/21/17 18:59 06:59 18:59 Intake Total 900 120 Balance 900 120 Intake: Oral 900 120 Other: # Voids 3 3 # Bowel Movements 1 Active Medications: Current Medications Calcium/Vitamin D (Oscal W/Vitamin D) 2 tab PO BID [facility] Stop: 12/05/17 08:59 Last Admin: 10/20/17 17:52 Dose: Not Given Clonazepam (Klonopin) 0.5 mg PO BID [facility] PRN Reason: Protocol Stop: 12/19/17 08:59 Last Admin: 10/20/17 17:52 Dose: Not Given Divalproex Sodium (Depakote Dr) 500 mg PO BID [facility] Stop: 12/12/17 06:03 Last Admin: 10/20/17 17:52 Dose: Not Given Docusate Sodium (Colace) 250 mg PO DAILY [facility] Stop: 12/05/17 08:59 Last Admin: 10/20/17 08:31 Dose: 250 mg Ferrous Sulfate (Iron) 325 mg PO BID [facility] Stop: 12/05/17 08:59 Last Admin: 10/20/17 17:52 Dose: Not Given Ibuprofen (Motrin) 400 mg PO Q8H PRN PRN Reason: Pain (Moderate) Stop: 12/08/17 09:52 Last Admin: 10/11/17 20:18 Dose: 400 mg Levothyroxine Sodium (Synthroid) 0.088 mg PO QDAC [facility] Stop: 12/05/17 07:29 Metformin HCl (Glucophage) 1,000 mg PO BID [facility] Stop: 12/05/17 08:59 Last Admin: 10/20/17 17:52 Dose: Not Given Pioglitazone HCl (Actos) 45 mg PO DAILY [facility] Stop: 12/05/17 08:59 Last Admin: 10/20/17 08:29 Dose: 45 mg Quetiapine Fumarate (Seroquel) 300 mg PO BID [facility] Stop: 12/05/17 16:59 Last Admin: 10/20/17 17:52 Dose: Not Given General: Alert, No acute distress HEENT: Atraumatic Neck: Supple Cardiovascular: Regular rate Abdomen: Bowel sounds, Soft Assessment/Plan - Assessment Assessment: psychosis bipolar disorder medical clearance - Plan Plan: as per ordersheet Nutritional Asmnt/Malnutr-PDOC - Dietary Evaluation Malnutrition Findings (Please click <Entered> for more info): Nutritional Asmnt/Malnutrition Start: 10/09/17 13: 40 Text: Status: Complete Freq: Document 10/09/17 13:40 [facility] (Rec: 10/09/17 13:57 [id number]) Nutritional Asmnt/Malnutrition Patient General Information Nutritional Screening Moderate Risk Diagnosis psychosis Pertinent Medical Hx/Surgical Hx HTN, DM, anemia, constipation, hypothyroidism Subjective Information Pt seen sitting up in bed taking soup, Luxembourgish speaking. Per CONFIGURATION TECHNICIAN, pt eats 100% of meals, always ask for extra food. Current Diet Order/ Nutrition Support CCHO-60gm, low fat, low cholesterol, small portion Pertinent Medications oscal w/vit D, colace, Iron, synthroid, gluophage, seroquel Pertinent Labs 4/ Na 135, BUN 27, glucose 122, A1c 7.3, alb 3.6 4/4-4/ POC 89-126 Nutritional Hx/Data Height 1.57 m Height (Calculated Centimeters) 157.5 Current Weight (lbs) 79.379 kg Weight (Calculated Kilograms) 79.4 Weight (Calculated Grams) 66170.7 [place] Body Weight 110 Body Mass Index (BMI) 32.0 Weight Status Obese GI Symptoms GI Symptoms None Last BM 4/6 Difficult in: None Skin Integrity/Comment: intact 1+pitting edema to left and right arms marlena score 21 Current %PO Good (75-100%) Estimated Nutritional Goals BEE in Kcals: Adj wt of IBW Calories/Kcals/Kg 25-30 Kcals Calculated 4774-3905 Protein: Adj wt of IBW Protein g/k-1.2 Protein Calculated 57-68 Fluid: ml 1425-1710ml (1ml/kcal) Nutritional Problem 1. Problem Problem altered nutrition related lab values Etiology hx of DM Signs/Symptoms: glucose 122, A1c 7.3, POC 89- 126 Malnutrition Alert Protein-Calorie Malnutrition N/A Is there a minimum of two criteria No selected? Query Text:Check all the applicable criteria. A minimum of two criteria are recommended for diagnosis of either severe or non-severe malnutrition. Intervention/Recommendation Comments 1. Continue with current diet as ordered. 2. Monitor PO intake, wt, labs and skin integrity 3. F/U as moderate risk in 3-5 days, 10/12-10/14 Expected Outcomes/Goals Expected Outcomes/Goals 1. PO intake to meet at least 75% of nutritional needs. 2. Wt stability, skin to remain intact, labs to approach WNL.
[2017-10-22] MEDS ORDERED: Haloperidol Lactate 5 mg/mL 1mL Vial ONE (08:17)
[2017-10-22] MEDS ORDERED: Haloperidol Lactate 5 mg/mL 1mL Vial IM ONE (08:20)
[2017-10-22] MEDS: DEXAMETHASONE LEFT EYE SCH ×3 (08:36→20:06)
[2017-10-22] MEDS: Calcium Carb/Vit D 500 mg/200 U Tab PO SCH ×2 (08:36→16:18)
[2017-10-22] MEDS: Ferrous Sulfate 325 MG TAB PO SCH ×2 (08:36→16:18)
[2017-10-22] MEDS: TOBRAMYCIN LEFT EYE SCH ×3 (08:36→20:06)
--- NOTE | 2017-10-22 09:46 | Progress Notes ---
DATE: 10/21/2017 Chart reviewed and the patient interviewed. Also discussed the patient's condition with the staff and reviewed the records and labs. The patient is still extremely agitated and in irritable mood, but seems to be slightly calmer than before. She also still needs lots of redirections. Also, personal hygiene is still poor and she still makes mess in her room and bed and she is still unable to have any coherent feelings. Otherwise, the patient is compliant with taking her medications with no side effects of medications. ASSESSMENT: The patient is still agitated and is still in irritable mood. TREATMENT PLAN: Continue monitoring her behavior closely and we will continue to follow up. JOB# [id number]
[2017-10-23] MEDS: Calcium Carb/Vit D 500 mg/200 U Tab PO SCH ×2 (10:01→16:53)
[2017-10-23] MEDS: Ferrous Sulfate 325 MG TAB PO SCH ×2 (10:03→16:53)
[2017-10-23] MEDS: TOBRAMYCIN LEFT EYE SCH (10:03)
[2017-10-23] MEDS: DEXAMETHASONE LEFT EYE SCH (10:03)
--- NOTE | 2017-10-23 21:54 | Progress Notes ---
DATE: 10/23/2017 SUBJECTIVE: The patient in the hospital due to increased agitation, aggressive behavior, striking out. The patient has been on Depakote and Seroquel. Apparently quite psychotic, living in [facility]. Dr. Bhatt seeing the patient over the past few days, noting that she remained agitated, irritable, quite disheveled and unkempt. The patient refusing to speak with me this morning. She is in bed, awake, but does not talk to me. Medications were noted. ASSESSMENT: The patient remains agitated, still irritable, impulsive, unpredictable behaviors. Medications were reviewed. No EPS noted. No oversedation. PLAN: We will continue to monitor her. Given her ongoing behavioral problems, she is not safe for discharge. JOB# [id number]
--- NOTE | 2017-10-24 00:29 | Progress Notes ---
DATE: 10/23/2017 SUBJECTIVE: The patient was seen in her room, lying in the bed. The patient appears to be confused, irritable, otherwise the patient appears to be in no acute distress. OBJECTIVE: VITAL SIGNS: Temperature 97.2, heart rate of 90, blood pressure 154/56, respirations 20, and 97% on room air. HEENT: Head is atraumatic and normocephalic. Eyes: Bilateral conjunctivae are clear. Bilateral pupils are equally round and reactive. NECK: Supple. No JVD. CARDIOVASCULAR: S1 and S2, without murmur. PULMONARY: Clear to auscultation. GASTROINTESTINAL: Soft and nontender without guarding. Positive bowel sounds. MUSCULOSKELETAL: No clubbing. No cyanosis noted. ASSESSMENT: 1. Psychosis. 2. Hypertension. 3. Diabetes. 4. Hypothyroidism. 5. Anemia. PLAN: We will keep the patient inpatient in Psychiatric Unit. We will follow up with the psychiatrist and monitor the patient's condition and behavior. Treatment plans were discussed with the patient's nurse. Treatment plans were discussed with Dr. Saab. JOB# [id number]
[2017-10-24] MEDS: Calcium Carb/Vit D 500 mg/200 U Tab PO SCH ×2 (08:31→16:51)
[2017-10-24] MEDS: Ferrous Sulfate 325 MG TAB PO SCH ×2 (08:31→16:51)
--- NOTE | 2017-10-24 08:39 | General Progress Note ---
Subjective - Review of Systems Events since last encounter: patient still confused and irritable denies pain no distress Subjective: awake, agitated nad Objective - Results Result Diagrams: 10/05/17 15:44 10/05/17 15:44 Recent Labs: Laboratory Last Values WBC 5.5 Th/cmm (4.8-10.8) 10/05/17 15:44 RBC 3.46 Mil/cmm (3.80-5.10) L 10/05/17 15:44 Hgb 10.2 gm/dL (12-16) L 10/05/17 15:44 Hct 30.7 % (41.0-60) L 10/05/17 15:44 MCV 88.7 fl (81-100) 10/05/17 15:44 MCH 29.5 pg (27.0-31.0) 10/05/17 15:44 MCHC Differential 33.2 pg (28.0-36.0) 10/05/17 15:44 RDW 13.8 % (11.5-20.0) 10/05/17 15:44 Plt Count 225 Th/cmm (150-400) 10/05/17 15:44 MPV 9.2 fl 10/05/17 15:44 Neutrophils % 65.6 % (40.0-80.0) 10/05/17 15:44 Lymphocytes % 25.0 % (20.0-50.0) 10/05/17 15:44 Monocytes % 6.2 % (2.0-10.0) 10/05/17 15:44 Eosinophils % 2.7 % (0.0-5.0) 10/05/17 15:44 Basophils % 0.5 % (0.0-2.0) 10/05/17 15:44 Sodium 135 mEq/L (136-145) L 10/05/17 15:44 Potassium 4.1 mEq/L (3.5-5.1) 10/05/17 15:44 Chloride 102 mEq/L (98-107) 10/05/17 15:44 Carbon Dioxide 26.1 mEq/L (21.0-31.0) 10/05/17 15:44 Anion Gap 11.0 (7.0-16.0) 10/05/17 15:44 BUN 27 mg/dL (7-25) H 10/05/17 15:44 Creatinine 1.1 mg/dL (0.6-1.2) 10/05/17 15:44 Est GFR ( Amer) > 60.0 ml/min (>90) 10/05/17 15:44 Est GFR (Non-Af Amer) 53.1 ml/min 10/05/17 15:44 BUN/Creatinine Ratio 24.5 10/05/17 15:44 Glucose 122 mg/dL (70-105) H 10/05/17 15:44 POC Glucose 159 MG/DL (70 - 105) H 10/23/17 05:44 Hemoglobin A1c % 7.3 % (4.0-6.0) H 10/05/17 15:44 Calcium 8.9 mg/dL (8.6-10.3) 10/05/17 15:44 Total Bilirubin 0.2 mg/dL (0.3-1.0) L 10/05/17 15:44 AST 20 U/L (13-39) 10/05/17 15:44 ALT 21 U/L (7-52) 10/05/17 15:44 Alkaline Phosphatase 103 U/L (34-104) 10/05/17 15:44 Total Protein 6.6 gm/dL (6.0-8.3) 10/05/17 15:44 Albumin 3.6 gm/dL (3.7-5.3) L 10/05/17 15:44 Globulin 3.0 gm/dL 10/05/17 15:44 Albumin/Globulin Ratio 1.2 (1.0-1.8) 10/05/17 15:44 Triglycerides 337 mg/dL (<150) H 10/05/17 15:44 Cholesterol 160 mg/dL (<200) 10/05/17 15:44 LDL Cholesterol Direct 76 mg/dL (75-193) 10/05/17 15:44 HDL Cholesterol 36 mg/dL (23-92) 10/05/17 15:44 TSH 3.92 uIU/ml (0.34-5.60) 10/05/17 15:44 Salicylates < 25.0 mg/L (30.0-100.0) L 10/05/17 15:44 Acetaminophen < 10.0 ug/mL (10.0-30.0) L 10/05/17 15:44 Valproic Acid 66.3 ug/mL (50.0-100.0) 10/18/17 06:40 Ethyl Alcohol < 10 mg/dL (0-10) 10/05/17 15:44 RPR NONREACTIVE (NONREACTIVE) 10/05/17 15:44 - Physical Exam Vitals and I&O: Vital Signs Temp 97.2 F 10/23/17 20:00 Pulse 109 10/23/17 20:00 Resp 18 10/23/17 20:00 BP 124/74 10/23/17 20:00 Pulse Ox 97 10/23/17 20:00 Intake & Output 10/23/17 10/24/17 10/24/17 18:59 06:59 18:59 Intake Total 960 120 Balance 960 120 Intake: Oral 960 120 Other: # Voids 3 3 # Bowel Movements 1 Active Medications: Current Medications Calcium/Vitamin D (Oscal W/Vitamin D) 2 tab PO BID [facility] Stop: 12/05/17 08:59 Last Admin: 10/23/17 16:53 Dose: Not Given Clonazepam (Klonopin) 0.5 mg PO BID [facility] PRN Reason: Protocol Stop: 12/19/17 08:59 Last Admin: 10/23/17 16:53 Dose: 0.5 mg Divalproex Sodium (Depakote Dr) 500 mg PO BID [facility] Stop: 12/12/17 06:03 Last Admin: 10/23/17 16:52 Dose: 500 mg Docusate Sodium (Colace) 250 mg PO DAILY [facility] Stop: 12/05/17 08:59 Last Admin: 10/23/17 10:03 Dose: Not Given Ferrous Sulfate (Iron) 325 mg PO BID [facility] Stop: 12/05/17 08:59 Last Admin: 10/23/17 16:53 Dose: Not Given Ibuprofen (Motrin) 400 mg PO Q8H PRN PRN Reason: Pain (Moderate) Stop: 12/08/17 09:52 Last Admin: 10/11/17 20:18 Dose: 400 mg Levothyroxine Sodium (Synthroid) 0.088 mg PO QDAC [facility] Stop: 12/05/17 07:29 Metformin HCl (Glucophage) 1,000 mg PO BID [facility] Stop: 12/05/17 08:59 Last Admin: 10/23/17 16:54 Dose: Not Given Pioglitazone HCl (Actos) 45 mg PO DAILY [facility] Stop: 12/05/17 08:59 Last Admin: 10/23/17 10:04 Dose: Not Given Quetiapine Fumarate (Seroquel) 300 mg PO BID [facility] Stop: 12/05/17 16:59 Last Admin: 10/23/17 16:53 Dose: 300 mg General: Alert, No acute distress HEENT: Atraumatic Neck: Supple Cardiovascular: Regular rate Abdomen: Bowel sounds, Soft Assessment/Plan - Assessment Assessment: psychosis bipolar disorder medical clearance - Plan Plan: as per ordersheet Nutritional Asmnt/Malnutr-PDOC - Dietary Evaluation Malnutrition Findings (Please click <Entered> for more info): Nutritional Asmnt/Malnutrition Start: 10/09/17 13: 40 Text: Status: Complete Freq: Document 10/09/17 13:40 JASMIN (Rec: 10/09/17 13:57 LCHEN FRANCISCO [email or web address]) Nutritional Asmnt/Malnutrition Patient General Information Nutritional Screening Moderate Risk Diagnosis psychosis Pertinent Medical Hx/Surgical Hx HTN, DM, anemia, constipation, hypothyroidism Subjective Information Pt seen sitting up in bed taking soup, [place] speaking. Per CHIEF SCIENTIST, pt eats 100% of meals, always ask for extra food. Current Diet Order/ Nutrition Support CCHO-60gm, low fat, low cholesterol, small portion Pertinent Medications oscal w/vit D, colace, Iron, synthroid, gluophage, seroquel Pertinent Labs 4/ Na 135, BUN 27, glucose 122, A1c 7.3, alb 3.6 4/4-4/5 POC 89-126 Nutritional Hx/Data Height 1.57 m Height (Calculated Centimeters) 157.5 Current Weight (lbs) 79.379 kg Weight (Calculated Kilograms) 79.4 Weight (Calculated Grams) 60949.7 [place] Body Weight 110 Body Mass Index (BMI) 32.0 Weight Status Obese GI Symptoms GI Symptoms None Last BM 4/6 Difficult in: None Skin Integrity/Comment: intact 1+pitting edema to left and right arms marlena score 21 Current %PO Good (75-100%) Estimated Nutritional Goals BEE in Kcals: Adj wt of IBW Calories/Kcals/Kg 25-30 Kcals Calculated 3822-1764 Protein: Adj wt of IBW Protein g/k-1.2 Protein Calculated 57-68 Fluid: ml 1425-1710ml (1ml/kcal) Nutritional Problem 1. Problem Problem altered nutrition related lab values Etiology hx of DM Signs/Symptoms: glucose 122, A1c 7.3, POC 89- 126 Malnutrition Alert Protein-Calorie Malnutrition N/A Is there a minimum of two criteria No selected? Query Text:Check all the applicable criteria. A minimum of two criteria are recommended for diagnosis of either severe or non-severe malnutrition. Intervention/Recommendation Comments 1. Continue with current diet as ordered. 2. Monitor PO intake, wt, labs and skin integrity 3. F/U as moderate risk in 3-5 days, 10/12-10/14 Expected Outcomes/Goals Expected Outcomes/Goals 1. PO intake to meet at least 75% of nutritional needs. 2. Wt stability, skin to remain intact, labs to approach WNL.
--- NOTE | 2017-10-24 09:08 | Progress Notes ---
DATE: 10/22/2017 SUBJECTIVE: Chart reviewed and the patient interviewed. Also discussed the patient's condition with the staff and reviewed the records and labs. The patient is extremely agitated and in irritable mood. The patient also is spitting on the staff and also tried to spit on myself while I was trying to talk to her. The patient also has not been able to sleep and she almost slept 2 hours. She also has unpredictable behavior and has been uncooperative. The patient also seems to be disoriented except to only her name. ASSESSMENT: The patient is still psychotic and agitated and can be dangerous to others. TREATMENT PLAN: Continue monitoring her behavior closely. Also, continue Depakote 500 mg twice a day and Seroquel 300 mg twice a day. Also, we will add trazodone in a dose of 50 mg at bedtime and we will continue to follow up closely. JOB# [id number]
--- NOTE | 2017-10-25 04:58 | Progress Notes ---
DATE: 10/24/2017 SUBJECTIVE: The patient noted increased agitation, unruly behaviors, psychotic behaviors. The patient continues to refuse interview, sleeping, comfortable, arousable, but does not want to talk to me. Staff noting that she slept for about 6 hours, poor orientation, confused, incontinent, anxious, unpredictable. MEDICATIONS: Were noted. ASSESSMENT: The patient remains symptomatic, still unruly per staff, poor orientation, refusing to speak with me. We will continue to monitor and follow up. [facility]# [id number]
[2017-10-25] MEDS: Calcium Carb/Vit D 500 mg/200 U Tab PO SCH ×2 (09:03→16:53)
[2017-10-25] MEDS: Ferrous Sulfate 325 MG TAB PO SCH ×2 (10:04→16:53)
--- NOTE | 2017-10-25 14:09 | General Progress Note ---
Subjective - Review of Systems Events since last encounter: still confused in no distress Subjective: awake, agitated nad Objective - Results Result Diagrams: 10/05/17 15:44 10/05/17 15:44 Recent Labs: Laboratory Last Values WBC 5.5 Th/cmm (4.8-10.8) 10/05/17 15:44 RBC 3.46 Mil/cmm (3.80-5.10) L 10/05/17 15:44 Hgb 10.2 gm/dL (12-16) L 10/05/17 15:44 Hct 30.7 % (41.0-60) L 10/05/17 15:44 MCV 88.7 fl (81-100) 10/05/17 15:44 MCH 29.5 pg (27.0-31.0) 10/05/17 15:44 MCHC Differential 33.2 pg (28.0-36.0) 10/05/17 15:44 RDW 13.8 % (11.5-20.0) 10/05/17 15:44 Plt Count 225 Th/cmm (150-400) 10/05/17 15:44 MPV 9.2 fl 10/05/17 15:44 Neutrophils % 65.6 % (40.0-80.0) 10/05/17 15:44 Lymphocytes % 25.0 % (20.0-50.0) 10/05/17 15:44 Monocytes % 6.2 % (2.0-10.0) 10/05/17 15:44 Eosinophils % 2.7 % (0.0-5.0) 10/05/17 15:44 Basophils % 0.5 % (0.0-2.0) 10/05/17 15:44 Sodium 135 mEq/L (136-145) L 10/05/17 15:44 Potassium 4.1 mEq/L (3.5-5.1) 10/05/17 15:44 Chloride 102 mEq/L (98-107) 10/05/17 15:44 Carbon Dioxide 26.1 mEq/L (21.0-31.0) 10/05/17 15:44 Anion Gap 11.0 (7.0-16.0) 10/05/17 15:44 BUN 27 mg/dL (7-25) H 10/05/17 15:44 Creatinine 1.1 mg/dL (0.6-1.2) 10/05/17 15:44 Est GFR ( Amer) > 60.0 ml/min (>90) 10/05/17 15:44 Est GFR (Non-Af Amer) 53.1 ml/min 10/05/17 15:44 BUN/Creatinine Ratio 24.5 10/05/17 15:44 Glucose 122 mg/dL (70-105) H 10/05/17 15:44 POC Glucose 159 MG/DL (70 - 105) H 10/23/17 05:44 Hemoglobin A1c % 7.3 % (4.0-6.0) H 10/05/17 15:44 Calcium 8.9 mg/dL (8.6-10.3) 10/05/17 15:44 Total Bilirubin 0.2 mg/dL (0.3-1.0) L 10/05/17 15:44 AST 20 U/L (13-39) 10/05/17 15:44 ALT 21 U/L (7-52) 10/05/17 15:44 Alkaline Phosphatase 103 U/L (34-104) 10/05/17 15:44 Total Protein 6.6 gm/dL (6.0-8.3) 10/05/17 15:44 Albumin 3.6 gm/dL (3.7-5.3) L 10/05/17 15:44 Globulin 3.0 gm/dL 10/05/17 15:44 Albumin/Globulin Ratio 1.2 (1.0-1.8) 10/05/17 15:44 Triglycerides 337 mg/dL (<150) H 10/05/17 15:44 Cholesterol 160 mg/dL (<200) 10/05/17 15:44 LDL Cholesterol Direct 76 mg/dL (75-193) 10/05/17 15:44 HDL Cholesterol 36 mg/dL (23-92) 10/05/17 15:44 TSH 3.92 uIU/ml (0.34-5.60) 10/05/17 15:44 Salicylates < 25.0 mg/L (30.0-100.0) L 10/05/17 15:44 Acetaminophen < 10.0 ug/mL (10.0-30.0) L 10/05/17 15:44 Valproic Acid 66.3 ug/mL (50.0-100.0) 10/18/17 06:40 Ethyl Alcohol < 10 mg/dL (0-10) 10/05/17 15:44 RPR NONREACTIVE (NONREACTIVE) 10/05/17 15:44 - Physical Exam Vitals and I&O: Vital Signs Temp 97.2 F 10/25/17 05:51 Pulse 92 10/25/17 05:51 Resp 20 10/25/17 05:51 BP 115/69 10/25/17 05:51 Pulse Ox 100 10/25/17 05:51 Intake & Output 10/24/17 10/25/17 10/25/17 18:59 06:59 18:59 Intake Total 900 240 Balance 900 240 Intake: Oral 900 240 Other: # Voids 3 2 # Bowel Movements 1 Active Medications: Current Medications Calcium/Vitamin D (Oscal W/Vitamin D) 2 tab PO BID [facility] Stop: 12/05/17 08:59 Last Admin: 10/25/17 09:03 Dose: 2 tab Clonazepam (Klonopin) 0.5 mg PO BID [facility] PRN Reason: Protocol Stop: 12/19/17 08:59 Last Admin: 10/25/17 09:04 Dose: 0.5 mg Divalproex Sodium (Depakote Dr) 500 mg PO BID [facility] Stop: 12/12/17 06:03 Last Admin: 10/25/17 09:03 Dose: 500 mg Docusate Sodium (Colace) 250 mg PO DAILY [facility] Stop: 12/05/17 08:59 Last Admin: 10/25/17 10:03 Dose: 250 mg Ferrous Sulfate (Iron) 325 mg PO BID [facility] Stop: 12/05/17 08:59 Last Admin: 10/25/17 10:04 Dose: 325 mg Ibuprofen (Motrin) 400 mg PO Q8H PRN PRN Reason: Pain (Moderate) Stop: 12/08/17 09:52 Last Admin: 10/11/17 20:18 Dose: 400 mg Levothyroxine Sodium (Synthroid) 0.088 mg PO QDAC [facility] Stop: 12/05/17 07:29 Metformin HCl (Glucophage) 1,000 mg PO BID [facility] Stop: 12/05/17 08:59 Last Admin: 10/25/17 09:03 Dose: 1,000 mg Pioglitazone HCl (Actos) 45 mg PO DAILY [facility] Stop: 12/05/17 08:59 Last Admin: 10/25/17 09:04 Dose: 45 mg Quetiapine Fumarate (Seroquel) 300 mg PO BID [facility] Stop: 12/05/17 16:59 Last Admin: 10/25/17 10:04 Dose: 300 mg General: Alert, No acute distress HEENT: Atraumatic Neck: Supple Cardiovascular: Regular rate Abdomen: Bowel sounds, Soft Assessment/Plan - Assessment Assessment: psychosis bipolar disorder medical clearance - Plan Plan: as per ordersheet Nutritional Asmnt/Malnutr-PDOC - Dietary Evaluation Malnutrition Findings (Please click <Entered> for more info): Nutritional Asmnt/Malnutrition Start: 10/09/17 13: 40 Text: Status: Complete Freq: Document 10/09/17 13:40 JASMIN (Rec: 10/09/17 13:57 LCHEN FRANCISCO [id number]) Nutritional Asmnt/Malnutrition Patient General Information Nutritional Screening Moderate Risk Diagnosis psychosis Pertinent Medical Hx/Surgical Hx HTN, DM, anemia, constipation, hypothyroidism Subjective Information Pt seen sitting up in bed taking soup, Citizen [place] speaking. Per NON DESTRUCTIVE TESTING TECHNICIAN, pt eats 100% of meals, always ask for extra food. Current Diet Order/ Nutrition Support CCHO-60gm, low fat, low cholesterol, small portion Pertinent Medications oscal w/vit D, colace, Iron, synthroid, gluophage, seroquel Pertinent Labs / Na 135, BUN 27, glucose 122, A1c 7.3, alb 3.6 /-4/ POC 89-126 Nutritional Hx/Data Height 1.57 m Height (Calculated Centimeters) 157.5 Current Weight (lbs) 79.379 kg Weight (Calculated Kilograms) 79.4 Weight (Calculated Grams) 63042.7 [place] Body Weight 110 Body Mass Index (BMI) 32.0 Weight Status Obese GI Symptoms GI Symptoms None Last BM 4/6 Difficult in: None Skin Integrity/Comment: intact 1+pitting edema to left and right arms marlena score 21 Current %PO Good (75-100%) Estimated Nutritional Goals BEE in Kcals: Adj wt of IBW Calories/Kcals/Kg 25-30 Kcals Calculated 5535-0812 Protein: Adj wt of IBW Protein g/k-1.2 Protein Calculated 57-68 Fluid: ml 1425-1710ml (1ml/kcal) Nutritional Problem 1. Problem Problem altered nutrition related lab values Etiology hx of DM Signs/Symptoms: glucose 122, A1c 7.3, POC 89- 126 Malnutrition Alert Protein-Calorie Malnutrition N/A Is there a minimum of two criteria No selected? Query Text:Check all the applicable criteria. A minimum of two criteria are recommended for diagnosis of either severe or non-severe malnutrition. Intervention/Recommendation Comments 1. Continue with current diet as ordered. 2. Monitor PO intake, wt, labs and skin integrity 3. F/U as moderate risk in 3-5 days, 10/12-10/14 Expected Outcomes/Goals Expected Outcomes/Goals 1. PO intake to meet at least 75% of nutritional needs. 2. Wt stability, skin to remain intact, labs to approach WNL.
--- NOTE | 2017-10-26 00:57 | Progress Notes ---
DATE: 10/25/2017 SUBJECTIVE: Chart reviewed and the patient interviewed. Also discussed the patient's condition with the staff and reviewed records and labs. The patient is still isolative and is still in irritable and angry mood. The patient also is still agitation and behavior problems and the patient is still throwing stuff towards the staff especially when she does not get her needs met. The patient also still has difficulty expressing herself and making her demands known. Also, during my interview, the patient still was trying to spit. Otherwise, the patient seems to be slightly calmer and slightly easier to redirect her. ASSESSMENT: The patient is still psychotic and agitated and she still can be dangerous to others. TREATMENT PLAN: Continue to monitor her behavior and her condition closely. Also, continue to work on her anger and irritability. Also, continue adjusting psychotropic medications and follow up closely. JOB# [id number]
[2017-10-26] MEDS: Ferrous Sulfate 325 MG TAB PO SCH ×2 (08:58→16:50)
[2017-10-26] MEDS: Calcium Carb/Vit D 500 mg/200 U Tab PO SCH ×2 (08:59→16:49)
--- NOTE | 2017-10-26 23:06 | Progress Notes ---
DATE: 10/26/2017 SUBJECTIVE: Chart reviewed and the patient interviewed. Also, discussed the patient's condition with the staff and I reviewed the records and labs. The patient is still extremely irritable and agitation. She is still manipulative. Also, the patient is still throwing objects towards the staff and is still aggressive when they try to help her with her ADLs. Also, personal hygiene is still poor. She also still has episodes of dirtying her bed and making a mess in her room. Otherwise, the patient is compliant with taking her medications with no side effects of medications. ASSESSMENT: The patient is still psychotic and is still agitated. TREATMENT PLAN: We will continue to monitor her behavior and her condition and will continue to work on her poor impulse control and agitation. JOB# [id number]
[2017-10-27] MEDS: Calcium Carb/Vit D 500 mg/200 U Tab PO SCH ×2 (08:35→16:57)
[2017-10-27] MEDS: Ferrous Sulfate 325 MG TAB PO SCH ×2 (08:35→16:57)
--- NOTE | 2017-10-27 08:56 | General Progress Note ---
Subjective - Review of Systems Events since last encounter: patient still psychotic irritable Subjective: awake, agitated nad Objective - Results Result Diagrams: 10/05/17 15:44 10/05/17 15:44 Recent Labs: Laboratory Last Values WBC 5.5 Th/cmm (4.8-10.8) 10/05/17 15:44 RBC 3.46 Mil/cmm (3.80-5.10) L 10/05/17 15:44 Hgb 10.2 gm/dL (12-16) L 10/05/17 15:44 Hct 30.7 % (41.0-60) L 10/05/17 15:44 MCV 88.7 fl (81-100) 10/05/17 15:44 MCH 29.5 pg (27.0-31.0) 10/05/17 15:44 MCHC Differential 33.2 pg (28.0-36.0) 10/05/17 15:44 RDW 13.8 % (11.5-20.0) 10/05/17 15:44 Plt Count 225 Th/cmm (150-400) 10/05/17 15:44 MPV 9.2 fl 10/05/17 15:44 Neutrophils % 65.6 % (40.0-80.0) 10/05/17 15:44 Lymphocytes % 25.0 % (20.0-50.0) 10/05/17 15:44 Monocytes % 6.2 % (2.0-10.0) 10/05/17 15:44 Eosinophils % 2.7 % (0.0-5.0) 10/05/17 15:44 Basophils % 0.5 % (0.0-2.0) 10/05/17 15:44 Sodium 135 mEq/L (136-145) L 10/05/17 15:44 Potassium 4.1 mEq/L (3.5-5.1) 10/05/17 15:44 Chloride 102 mEq/L (98-107) 10/05/17 15:44 Carbon Dioxide 26.1 mEq/L (21.0-31.0) 10/05/17 15:44 Anion Gap 11.0 (7.0-16.0) 10/05/17 15:44 BUN 27 mg/dL (7-25) H 10/05/17 15:44 Creatinine 1.1 mg/dL (0.6-1.2) 10/05/17 15:44 Est GFR ( Amer) > 60.0 ml/min (>90) 10/05/17 15:44 Est GFR (Non-Af Amer) 53.1 ml/min 10/05/17 15:44 BUN/Creatinine Ratio 24.5 10/05/17 15:44 Glucose 122 mg/dL (70-105) H 10/05/17 15:44 POC Glucose 160 MG/DL (70 - 105) H 10/26/17 06:54 Hemoglobin A1c % 7.3 % (4.0-6.0) H 10/05/17 15:44 Calcium 8.9 mg/dL (8.6-10.3) 10/05/17 15:44 Total Bilirubin 0.2 mg/dL (0.3-1.0) L 10/05/17 15:44 AST 20 U/L (13-39) 10/05/17 15:44 ALT 21 U/L (7-52) 10/05/17 15:44 Alkaline Phosphatase 103 U/L (34-104) 10/05/17 15:44 Total Protein 6.6 gm/dL (6.0-8.3) 10/05/17 15:44 Albumin 3.6 gm/dL (3.7-5.3) L 10/05/17 15:44 Globulin 3.0 gm/dL 10/05/17 15:44 Albumin/Globulin Ratio 1.2 (1.0-1.8) 10/05/17 15:44 Triglycerides 337 mg/dL (<150) H 10/05/17 15:44 Cholesterol 160 mg/dL (<200) 10/05/17 15:44 LDL Cholesterol Direct 76 mg/dL (75-193) 10/05/17 15:44 HDL Cholesterol 36 mg/dL (23-92) 10/05/17 15:44 TSH 3.92 uIU/ml (0.34-5.60) 10/05/17 15:44 Salicylates < 25.0 mg/L (30.0-100.0) L 10/05/17 15:44 Acetaminophen < 10.0 ug/mL (10.0-30.0) L 10/05/17 15:44 Valproic Acid 15.0 ug/mL (50.0-100.0) L 10/27/17 07:47 Ethyl Alcohol < 10 mg/dL (0-10) 10/05/17 15:44 RPR NONREACTIVE (NONREACTIVE) 10/05/17 15:44 - Physical Exam Vitals and I&O: Vital Signs Temp 96.8 F 10/27/17 06:49 Pulse 86 10/27/17 06:49 Resp 19 10/27/17 06:49 BP 114/65 10/27/17 06:49 Pulse Ox 96 10/27/17 06:49 Intake & Output 10/26/17 10/27/17 10/27/17 18:59 06:59 18:59 Intake Total 900 24 Balance 900 24 Intake: Oral 900 24 Other: # Voids 3 1 # Bowel Movements 1 Stool Characteristics Formed Brown Active Medications: Current Medications Calcium/Vitamin D (Oscal W/Vitamin D) 2 tab PO BID [facility] Stop: 12/05/17 08:59 Last Admin: 10/27/17 08:35 Dose: 2 tab Clonazepam (Klonopin) 0.5 mg PO BID [facility] PRN Reason: Protocol Stop: 12/19/17 08:59 Last Admin: 10/27/17 08:35 Dose: 0.5 mg Divalproex Sodium (Depakote Dr) 500 mg PO BID [facility] Stop: 12/12/17 06:03 Last Admin: 10/27/17 08:35 Dose: 500 mg Docusate Sodium (Colace) 250 mg PO DAILY [facility] Stop: 12/05/17 08:59 Last Admin: 10/27/17 08:35 Dose: 250 mg Ferrous Sulfate (Iron) 325 mg PO BID [facility] Stop: 12/05/17 08:59 Last Admin: 10/27/17 08:35 Dose: 325 mg Ibuprofen (Motrin) 400 mg PO Q8H PRN PRN Reason: Pain (Moderate) Stop: 12/08/17 09:52 Last Admin: 10/11/17 20:18 Dose: 400 mg Levothyroxine Sodium (Synthroid) 0.088 mg PO QDAC [facility] Stop: 12/05/17 07:29 Metformin HCl (Glucophage) 1,000 mg PO BID [facility] Stop: 12/05/17 08:59 Last Admin: 10/27/17 08:34 Dose: 1,000 mg Pioglitazone HCl (Actos) 45 mg PO DAILY [facility] Stop: 12/05/17 08:59 Last Admin: 10/27/17 08:35 Dose: 45 mg Quetiapine Fumarate (Seroquel) 300 mg PO BID [facility] Stop: 12/05/17 16:59 Last Admin: 10/27/17 08:35 Dose: 300 mg General: Alert, No acute distress HEENT: Atraumatic Neck: Supple Cardiovascular: Regular rate Abdomen: Bowel sounds, Soft Assessment/Plan - Assessment Assessment: psychosis bipolar disorder medical clearance - Plan Plan: as per ordersheet Nutritional Asmnt/Malnutr-PDOC - Dietary Evaluation Malnutrition Findings (Please click <Entered> for more info): Nutritional Asmnt/Malnutrition Start: 10/09/17 13: 40 Text: Status: Complete Freq: Document 10/09/17 13:40 JASMIN (Rec: 10/09/17 13:57 JASMIN FRANCISCO [email or web address]) Nutritional Asmnt/Malnutrition Patient General Information Nutritional Screening Moderate Risk Diagnosis psychosis Pertinent Medical Hx/Surgical Hx HTN, DM, anemia, constipation, hypothyroidism Subjective Information Pt seen sitting up in bed taking soup, [place] speaking. Per WAREHOUSE TEAM LEADER, pt eats 100% of meals, always ask for extra food. Current Diet Order/ Nutrition Support CCHO-60gm, low fat, low cholesterol, small portion Pertinent Medications oscal w/vit D, colace, Iron, synthroid, gluophage, seroquel Pertinent Labs 4/ Na 135, BUN 27, glucose 122, A1c 7.3, alb 3.6 4/4-4/5 POC 89-126 Nutritional Hx/Data Height 1.57 m Height (Calculated Centimeters) 157.5 Current Weight (lbs) 79.379 kg Weight (Calculated Kilograms) 79.4 Weight (Calculated Grams) 93882.7 [place] Body Weight 110 Body Mass Index (BMI) 32.0 Weight Status Obese GI Symptoms GI Symptoms None Last BM 4/6 Difficult in: None Skin Integrity/Comment: intact 1+pitting edema to left and right arms marlena score 21 Current %PO Good (75-100%) Estimated Nutritional Goals BEE in Kcals: Adj wt of IBW Calories/Kcals/Kg 25-30 Kcals Calculated 4279-3416 Protein: Adj wt of IBW Protein g/k-1.2 Protein Calculated 57-68 Fluid: ml 1425-1710ml (1ml/kcal) Nutritional Problem 1. Problem Problem altered nutrition related lab values Etiology hx of DM Signs/Symptoms: glucose 122, A1c 7.3, POC 89- 126 Malnutrition Alert Protein-Calorie Malnutrition N/A Is there a minimum of two criteria No selected? Query Text:Check all the applicable criteria. A minimum of two criteria are recommended for diagnosis of either severe or non-severe malnutrition. Intervention/Recommendation Comments 1. Continue with current diet as ordered. 2. Monitor PO intake, wt, labs and skin integrity 3. F/U as moderate risk in 3-5 days, 10/12-10/14 Expected Outcomes/Goals Expected Outcomes/Goals 1. PO intake to meet at least 75% of nutritional needs. 2. Wt stability, skin to remain intact, labs to approach WNL.
--- NOTE | 2017-10-28 05:01 | Progress Notes ---
DATE: 10/27/2017 Chart reviewed and the patient interviewed. Also discussed the patient's condition with the staff and reviewed records and labs. The patient is still in irritable and angry mood and she still needs lots of redirections. The patient also is anxious and restless. She also is still having mood swings and at times the patient is calm and cooperative . The patient is agitated and in irritable mood. On the other hand, slightly easier to redirect her and seems to be calmer than before. The patient also is not throwing objects at staff as much as she used to. ASSESSMENT: The patient seems to be slightly less agitated and less psychotic and calmer. TREATMENT PLAN: Continue Depakote, Seroquel, Klonopin at same dose. Also, we will get Depakote blood level. Also, continue to work on placement issue and discharge plans as well as behavior modification. JOB# [id number]
--- NOTE | 2017-10-28 08:31 | General Progress Note ---
Subjective - Review of Systems Events since last encounter: in no distress awake alert Subjective: awake, agitated nad Objective - Results Result Diagrams: 10/05/17 15:44 10/05/17 15:44 Recent Labs: Laboratory Last Values WBC 5.5 Th/cmm (4.8-10.8) 10/05/17 15:44 RBC 3.46 Mil/cmm (3.80-5.10) L 10/05/17 15:44 Hgb 10.2 gm/dL (12-16) L 10/05/17 15:44 Hct 30.7 % (41.0-60) L 10/05/17 15:44 MCV 88.7 fl (81-100) 10/05/17 15:44 MCH 29.5 pg (27.0-31.0) 10/05/17 15:44 MCHC Differential 33.2 pg (28.0-36.0) 10/05/17 15:44 RDW 13.8 % (11.5-20.0) 10/05/17 15:44 Plt Count 225 Th/cmm (150-400) 10/05/17 15:44 MPV 9.2 fl 10/05/17 15:44 Neutrophils % 65.6 % (40.0-80.0) 10/05/17 15:44 Lymphocytes % 25.0 % (20.0-50.0) 10/05/17 15:44 Monocytes % 6.2 % (2.0-10.0) 10/05/17 15:44 Eosinophils % 2.7 % (0.0-5.0) 10/05/17 15:44 Basophils % 0.5 % (0.0-2.0) 10/05/17 15:44 Sodium 135 mEq/L (136-145) L 10/05/17 15:44 Potassium 4.1 mEq/L (3.5-5.1) 10/05/17 15:44 Chloride 102 mEq/L (98-107) 10/05/17 15:44 Carbon Dioxide 26.1 mEq/L (21.0-31.0) 10/05/17 15:44 Anion Gap 11.0 (7.0-16.0) 10/05/17 15:44 BUN 27 mg/dL (7-25) H 10/05/17 15:44 Creatinine 1.1 mg/dL (0.6-1.2) 10/05/17 15:44 Est GFR ( Amer) > 60.0 ml/min (>90) 10/05/17 15:44 Est GFR (Non-Af Amer) 53.1 ml/min 10/05/17 15:44 BUN/Creatinine Ratio 24.5 10/05/17 15:44 Glucose 122 mg/dL (70-105) H 10/05/17 15:44 POC Glucose 136 MG/DL (70 - 105) H 10/28/17 06:05 Hemoglobin A1c % 7.3 % (4.0-6.0) H 10/05/17 15:44 Calcium 8.9 mg/dL (8.6-10.3) 10/05/17 15:44 Total Bilirubin 0.2 mg/dL (0.3-1.0) L 10/05/17 15:44 AST 20 U/L (13-39) 10/05/17 15:44 ALT 21 U/L (7-52) 10/05/17 15:44 Alkaline Phosphatase 103 U/L (34-104) 10/05/17 15:44 Total Protein 6.6 gm/dL (6.0-8.3) 10/05/17 15:44 Albumin 3.6 gm/dL (3.7-5.3) L 10/05/17 15:44 Globulin 3.0 gm/dL 10/05/17 15:44 Albumin/Globulin Ratio 1.2 (1.0-1.8) 10/05/17 15:44 Triglycerides 337 mg/dL (<150) H 10/05/17 15:44 Cholesterol 160 mg/dL (<200) 10/05/17 15:44 LDL Cholesterol Direct 76 mg/dL (75-193) 10/05/17 15:44 HDL Cholesterol 36 mg/dL (23-92) 10/05/17 15:44 TSH 3.92 uIU/ml (0.34-5.60) 10/05/17 15:44 Salicylates < 25.0 mg/L (30.0-100.0) L 10/05/17 15:44 Acetaminophen < 10.0 ug/mL (10.0-30.0) L 10/05/17 15:44 Valproic Acid 15.0 ug/mL (50.0-100.0) L 10/27/17 07:47 Ethyl Alcohol < 10 mg/dL (0-10) 10/05/17 15:44 RPR NONREACTIVE (NONREACTIVE) 10/05/17 15:44 - Physical Exam Vitals and I&O: Vital Signs Temp 97.6 F 10/27/17 20:00 Pulse 98 10/27/17 20:00 Resp 19 10/27/17 20:00 BP 116/69 10/27/17 20:00 Pulse Ox 97 10/27/17 20:00 Intake & Output 10/27/17 10/28/17 10/28/17 18:59 06:59 18:59 Intake Total 1200 120 Balance 1200 120 Intake: Oral 1200 120 Other: # Voids 3 3 Active Medications: Current Medications Calcium/Vitamin D (Oscal W/Vitamin D) 2 tab PO BID [facility] Stop: 12/05/17 08:59 Last Admin: 10/27/17 16:57 Dose: 2 tab Clonazepam (Klonopin) 0.5 mg PO BID [facility] PRN Reason: Protocol Stop: 12/19/17 08:59 Last Admin: 10/27/17 16:57 Dose: 0.5 mg Divalproex Sodium (Depakote Dr) 500 mg PO BID [facility] Stop: 12/12/17 06:03 Last Admin: 10/27/17 16:57 Dose: 500 mg Docusate Sodium (Colace) 250 mg PO DAILY [facility] Stop: 12/05/17 08:59 Last Admin: 10/27/17 08:35 Dose: 250 mg Ferrous Sulfate (Iron) 325 mg PO BID [facility] Stop: 12/05/17 08:59 Last Admin: 10/27/17 16:57 Dose: 325 mg Ibuprofen (Motrin) 400 mg PO Q8H PRN PRN Reason: Pain (Moderate) Stop: 12/08/17 09:52 Last Admin: 10/11/17 20:18 Dose: 400 mg Levothyroxine Sodium (Synthroid) 0.088 mg PO QDAC [facility] Stop: 12/05/17 07:29 Metformin HCl (Glucophage) 1,000 mg PO BID [facility] Stop: 12/05/17 08:59 Last Admin: 10/27/17 16:57 Dose: 1,000 mg Pioglitazone HCl (Actos) 45 mg PO DAILY [facility] Stop: 12/05/17 08:59 Last Admin: 10/27/17 08:35 Dose: 45 mg Quetiapine Fumarate (Seroquel) 300 mg PO BID [facility] Stop: 12/05/17 16:59 Last Admin: 10/27/17 16:57 Dose: 300 mg General: Alert, No acute distress HEENT: Atraumatic Neck: Supple Cardiovascular: Regular rate Abdomen: Bowel sounds, Soft Assessment/Plan - Assessment Assessment: psychosis bipolar disorder medical clearance - Plan Plan: as per ordersheet Nutritional Asmnt/Malnutr-PDOC - Dietary Evaluation Malnutrition Findings (Please click <Entered> for more info): Nutritional Asmnt/Malnutrition Start: 10/09/17 13: 40 Text: Status: Complete Freq: Document 10/09/17 13:40 JASMIN (Rec: 10/09/17 13:57 LCHEN FRANCISCO [id number]) Nutritional Asmnt/Malnutrition Patient General Information Nutritional Screening Moderate Risk Diagnosis psychosis Pertinent Medical Hx/Surgical Hx HTN, DM, anemia, constipation, hypothyroidism Subjective Information Pt seen sitting up in bed taking soup, [place] speaking. 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 Current Diet Order/ Nutrition Support CCHO-60gm, low fat, low cholesterol, small portion Pertinent Medications oscal w/vit D, colace, Iron, synthroid, gluophage, seroquel Pertinent Labs 4/ Na 135, BUN 27, glucose 122, A1c 7.3, alb 3.6 4/4-4/ POC 89-126 Nutritional Hx/Data Height 1.57 m Height (Calculated Centimeters) 157.5 Current Weight (lbs) 79.379 kg Weight (Calculated Kilograms) 79.4 Weight (Calculated Grams) 01502.7 [place] Body Weight 110 Body Mass Index (BMI) 32.0 Weight Status Obese GI Symptoms GI Symptoms None Last BM 4/6 Difficult in: None Skin Integrity/Comment: intact 1+pitting edema to left and right arms marlena score 21 Current %PO Good (75-100%) Estimated Nutritional Goals BEE in Kcals: Adj wt of IBW Calories/Kcals/Kg 25-30 Kcals Calculated 9695-0961 Protein: Adj wt of IBW Protein g/k-1.2 Protein Calculated 57-68 Fluid: ml 1425-1710ml (1ml/kcal) Nutritional Problem 1. Problem Problem altered nutrition related lab values Etiology hx of DM Signs/Symptoms: glucose 122, A1c 7.3, POC 89- 126 Malnutrition Alert Protein-Calorie Malnutrition N/A Is there a minimum of two criteria No selected? Query Text:Check all the applicable criteria. A minimum of two criteria are recommended for diagnosis of either severe or non-severe malnutrition. Intervention/Recommendation Comments 1. Continue with current diet as ordered. 2. Monitor PO intake, wt, labs and skin integrity 3. F/U as moderate risk in 3-5 days, 10/12-10/14 Expected Outcomes/Goals Expected Outcomes/Goals 1. PO intake to meet at least 75% of nutritional needs. 2. Wt stability, skin to remain intact, labs to approach WNL.
[2017-10-28] MEDS: Calcium Carb/Vit D 500 mg/200 U Tab PO SCH (08:34)
[2017-10-28] MEDS: Ferrous Sulfate 325 MG TAB PO SCH (08:34)
--- NOTE | 2017-10-28 23:07 | Discharge Summary ---
DATE OF DISCHARGE: 10/28/2017 FINAL DIAGNOSES AND PRIMARY DIAGNOSES: Schizoaffective disorder, bipolar type, with psychotic features, severe. REASON FOR HOSPITALIZATION: The patient was admitted to the hospital because of increased agitation and irritability and aggressive behavior and active psychosis. HOSPITAL COURSE: The patient continued to be agitated and irritable and aggressive. The patient was fighting with the staff and she was actively responding. She was hitting staff at times. Also, personal hygiene was poor and the patient was getting off her diapers and smearing feces all over the place. Gradually, the patient's affect was brighter. The patient was less irritable and less agitated. She also was aggressive with the staff and with peers. She also was given her Seroquel in a dose of 100 mg twice a day that helps the patient's agitation. The patient had no major medical problems while in the hospital and blood workup was monitored closely. AFTER DISCHARGE PLANS: The patient discharged from the hospital, went to [place] with plans for follow her up there. EXPECTED OUTCOME AFTER DISCHARGE: Fair if the patient continued with her outpatient treatment and monitored closely with discharge plans. [facility]# [id number]
== END 2017-10-28 17:15 | DRG 885 ==
LOC: ER 15:11 → GERO2 17:00 → GERO 17:30
PROVIDERS: ADMIT Psychiatry & Neurology Psychiatry; ATTEND Psychiatry & Neurology Psychiatry
DX: F25.0 Schizoaffective disorder, bipolar type (principal); F29 Unspecified psychosis not due to a substance or known physiological condition; I10 Essential (primary) hypertension; E03.9 Hypothyroidism, unspecified; K59.00 Constipation, unspecified; E11.9 Type 2 diabetes mellitus without complications; D50.9 Iron deficiency anemia, unspecified; M19.90 Unspecified osteoarthritis, unspecified site
CPT/HCPCS: 36415-UA; 73090-TC-LT; 73090-TC-RT; 80053-TC; 80061-TC; 80164-TC; 80320-TC; 80329-TC; 82948-90; 83036-90; 84443-TC; 85025-TC; 86592-TC; 90899; 93005; G0410; J1200; J1630; J2060; Q0161; Z7610